=== PATIENT | female | born 1995 | race American Indian/Alaskan Native ===

== ENCOUNTER 2020-10-17 09:12 | Emergency (ER) | payer SELFPAY ==
[2020-10-17 09:17] VITALS: BP 156/99
--- NOTE | 2020-10-17 09:19 | Event Note ---
ED Screening Note Date of service: 10/17/20 Time: 09:14 ED Screening Note: 25-year-old -Turkish female presents to the emergency room for pelvic cramping x2 weeks. Patient states that she found out yesterday that she is . Patient denies any vaginal bleeding. This initial assessment/diagnostic orders/clinical plan/treatment(s) is/are subject to change based on patients health status, clinical progression and re- assessment by fellow clinical providers in the ED. Further treatment and workup at subsequent clinical providers discretion. Patient/guardian urged not to elope from the ED as their condition may be serious if not clinically assessed and managed. Initial orders include:
--- NOTE | 2020-10-17 10:29 | Ultrasound Report ---
US OB <= 14 wk fetus add gest, US OB transvaginal INDICATION / CLINICAL INFORMATION: Pelvic cramping with positive home test. COMPARISON: None available. FINDINGS: Single, viable intrauterine . heart rate 105. pole is extremely small but appears to measure approximately 2.8 mm, corresponding to a gestati onal age of 5 weeks 6 days. Tiny (6 mm) subchorionic hemorrhage. Both ovaries are unremarkable. No free fluid. IMPRESSION: 1. Single, viable very early intrauterine . Signer Name: Seth Sullivan MD Signed: 10/17/2020 10:25 AM Workstation Name: [id number]
[2020-10-17 11:14] LABS: Basophils # (Auto) 0.1 K/mm3 (0.0-0.1); Basophils % (Auto) 0.5 % (0.0-1.8); Eosinophils # (Auto) 0.1 K/mm3 (0.0-0.4); Eosinophils % (Auto) 1.1 % (0.0-4.3); Hematocrit 37.1 % (30.3-42.9); Hemoglobin 12.3 gm/dl (10.1-14.3); Lymphocytes # (Auto) 2.5 K/mm3 (1.2-5.4); Lymphocytes % (Auto) 21.4 % (13.4-35.0); Mean Corpuscular HGB Conc 33 % (30-34); Mean Corpuscular Volume 89 fl (79-97); Monocytes # (Auto) 0.9 K/mm3 (0.0-0.8); Monocytes % (Auto) 7.7 % (0.0-7.3); Platelet Count 313 K/mm3 (140-440); Red Blood Count 4.19 M/mm3 (3.65-5.03); Red Cell Distribution Width 15.4 % (13.2-15.2)
[2020-10-17 11:25] LABS: Alanine Aminotransferase 27 units/L (7-56); Albumin 3.8 g/dL (3.9-5); Blood Urea Nitrogen 6 mg/dL (7-17); Hemolysis Index 53
[2020-10-17 11:41] LABS: BUN/Creatinine Ratio 9
--- NOTE | 2020-10-17 11:52 | Emergency Department Report ---
ED Female HPI - General Chief complaint: Abdominal Pain Stated complaint: CRAMPING Source: patient Mode of arrival: Ambulatory Limitations: No Limitations - History of Present Illness Initial comments: 25-year-old -Tu[place] female presents to the emergency room for pelvic cramping x2 weeks. Patient states that she found out yesterday that she is . Patient denies any vaginal bleeding. Patient is 0 para 0. Patient reports her last menstrual period was end of July. Patient denies any vaginal discharge. Denies any urinary urgency or frequency or abdominal pain. But admits to abdominal cramping she states. Patient does admit that she smokes cigarettes drink alcohol and smokes marijuana. She reports a past medical history of colitis currently takes no medications on a daily basis no known drug allergies. Onset/Timin -: days(s) Location: suprapubic Severity scale (0 -10): 0 Quality: cramping Consistency: intermittent Improves with: none Worsens with: none Are you Now?: Yes Last Menstrual Period: 08/11/20 EDC: 05/18/21 - Related Data Previous Rx's Medication Instructions Recorded Last Taken Type Vit-Fe Fumar-FA [ 1 tab PO QDAY #90 tablet 10/17/20 Unknown Rx Vitamin] Allergies Allergy/AdvReac Type Severity Reaction Status Date / Time No Known Allergies Allergy Unverified 10/17/20 09:13 ED Review of Systems ROS: Stated complaint: CRAMPING Other details as noted in HPI Comment: All other systems reviewed and negative ED Past Medical Hx - Past Medical History Previous Medical History?: No - Surgical History Past Surgical History?: No - Social History Smoking Status: Current Every Day Smoker Substance Use Type: Alcohol - Medications Home Medications: Home Medications Medication Instructions Recorded Confirmed Last Taken Type Vit-Fe Fumar-FA [ 1 tab PO QDAY #90 tablet 10/17/20 Unknown Rx Vitamin] ED Physical Exam - General Limitations: No Limitations General appearance: alert - Head Head exam: Present: atraumatic, normocephalic - Eye Eye exam: Present: normal appearance, PERRL - ENT ENT exam: Present: mucous membranes moist - Neck Neck exam: Present: normal inspection, full ROM - Respiratory Respiratory exam: Present: normal lung sounds bilaterally. Absent: respiratory distress, chest wall tenderness, accessory muscle use - Cardiovascular Cardiovascular Exam: Present: regular rate, normal rhythm. Absent: systolic murmur, diastolic murmur, rubs, gallop - GI/Abdominal GI/Abdominal exam: Present: soft, normal bowel sounds - Extremities Exam Extremities exam: Present: normal inspection, full ROM - Back Exam Back exam: Present: normal inspection - Neurological Exam Neurological exam: Present: alert, oriented X3, normal gait - Psychiatric Psychiatric exam: Present: normal affect, normal mood - Skin Skin exam: Present: warm, dry, intact, normal color. Absent: rash ED Course Vital Signs 10/17/20 09:13 Temperature 98.3 F Pulse Rate 96 H Respiratory 18 Rate Blood Pressure 156/99 O2 Sat by Pulse 99 Oximetry ED Medical Decision Making - Lab Data Result diagrams: 10/17/20 10:13 10/17/20 10:13 - Radiology Data Radiology results: report reviewed [address] [address] Ultrasound Report Signed Patient: UNIQUE HITCHCOCK MR#: [id number] : 1995 Acct:[id number] Age/Sex: 25 / F ADM Date: 10/17/20 Loc: ED Attending Dr: Ordering Physician: KATE ESCALANTE Date of Service: 10/17/20 Procedure(s): US OB transvaginal Accession Number(s): [id number] cc: KATE ESCALANTE US OB <= 14 wk fetus add gest, US OB transvaginal INDICATION / CLINICAL INFORMATION: Pelvic cramping with positive home test. COMPARISON: None available. FINDINGS: Single, viable intrauterine . heart rate 105. pole is extremely small but appears to measure approximately 2.8 mm, corresponding to a gestational age of 5 weeks 6 days. Tiny (6 mm) subchorionic hemorrhage. Both ovaries are unremarkable. No free fluid. IMPRESSION: 1. Single, viable very early intrauterine . Signer Name: Seth Sullivan MD Signed: 10/17/2020 10:25 AM Workstation Name: [id number] Transcribed By: TM Dictated By: Seth Sullivan MD Electronically Authenticated By: Seth Sullivan MD Signed Date/Time: 10/17/20 1025 DD/ 1022 TD/TT: - Medical Decision Making 25-year-old -[place] female presents to the emergency room for pelvic cramping x2 weeks. Patient states that she found out yesterday that she is . Patient denies any vaginal bleeding. Patient is 0 para 0. Patient reports her last menstrual period was end of July. Patient denies any vaginal discharge. Denies any urinary urgency or frequency or abdominal pain. But admits to abdominal cramping she states. Patient does admit that she smokes cigarettes drink alcohol and smokes marijuana. She reports a past medical history of colitis currently takes no medications on a daily basis no known drug allergies. Ultrasound shows she is 5 weeks 6 days . Urinalysis is negative for any infection. Labs are stable. Discussed with patient to increase her water intake she can only take Tylenol for fever and pain. To consult her ANALOG DESIGN ENGINEER with information provided in discharge summary. Discussed with patient to discontinue smoking cigarettes and marijuana and drinking alcohol during her as this can cause low rate increased miscarriage and abnormalities. Critical care attestation.: If time is entered above; I have spent that time in minutes in the direct care of this critically ill patient, excluding procedure time. ED Disposition Clinical Impression: Pelvic cramping Qualifiers: Weeks of gestation: less than 8 weeks Qualified Code(s): Z3A.01 - Less than 8 weeks gestation of Disposition: DC-01 TO HOME OR SELFCARE Is pt being admited?: No Does the pt Need Aspirin: No Condition: Stable Instructions: Abdominal Pain (ED) Additional Instructions: Ultrasound shows that she are 5 weeks and 6 days . Your urine is negative for any infection. I recommend to take your vitamins daily increase your water intake by 3 to 4 L daily. Follow-up with an ANALOG DESIGN ENGINEER I have listed their information below for your convenience. Understand she can only take Tylenol as needed for pain and fever. Consult a ANALOG DESIGN ENGINEER before taking any [id number] medications. Prescriptions: Vit-Fe Fumar-FA [ Vitamin] 1 tab PO QDAY #90 tablet Referrals: PRIMARY CAREMD [Primary Care Provider] - 3-5 Days [facility] [Provider Group] - 3-5 Days [facility] [Provider Group] - 3-5 Days [facility] [Provider Group] - 3-5 Days [facility] [Provider Group] - 3-5 Days Forms: Work/School Release Form(ED)
[2020-10-17 11:55] LABS: Bilirubin,Urine NEG (Negative); Blood,Urine NEG (Negative); Color,Urine Yellow (Yellow); Mucus,Urine FEW /HPF; Urobilinogen,Urine < 2.0 mg/dL (<2.0)
== END 2020-10-17 12:10 | disposition home or self-care (01) ==
LOC: ED 09:12
DX: O26.891 Other specified pregnancy related conditions, first trimester (principal); O99.331 Smoking (tobacco) complicating pregnancy, first trimester; R10.2 Pelvic and perineal pain; Z3A.08 8 weeks gestation of pregnancy; Z79.899 Other long term (current) drug therapy
CPT/HCPCS: 36415; 76802; 76817; 80053; 81001; 84702; 85025

== ENCOUNTER 2021-06-15 20:14 | Inpatient (IN) | payer MEDICAID ==
[2021-06-15] MEDS ORDERED: miSOPROStol 200 MCG TAB PR PRN (20:44)
[2021-06-15] MEDS ORDERED: fentaNYL 100 MCG/2 ML INJ IV PRN (20:44)
[2021-06-15] MEDS ORDERED: MINERAL OIL 30 ML ORAL LIQD PO PRN (20:44)
[2021-06-15] MEDS ORDERED: TERBUTALINE 1 MG/1 ML INJ SUB-Q PRN (20:44)
[2021-06-15] MEDS ORDERED: DINOPROSTONE 10 MG VAG SUPP VG ONE (20:44)
[2021-06-15] MEDS ORDERED: LOPERAMIDE 2 MG CAP PO PRN (20:44)
[2021-06-15] MEDS ORDERED: OXYTOCIN 10 UNIT/1 ML INJ IM PRN (20:44)
[2021-06-15] MEDS ORDERED: ACETAMINOPHEN 325 MG TAB PO PRN (20:44)
[2021-06-15] MEDS ORDERED: LIDOCAINE (2%) 20 MG/1 ML VIAL 20 ML MDV INFILTRATI ONE (20:44)
[2021-06-15] MEDS ORDERED: ONDANSETRON 4 MG/2 ML INJ IV PRN (20:44)
[2021-06-15] MEDS ORDERED: NalbUPHINE 10 MG/1 ML INJ IV PRN (20:44)
[2021-06-15] MEDS ORDERED: METHYLERGONOVINE MALEATE 0.2 MG/ML VIAL IM PRN (20:44)
[2021-06-15] MEDS ORDERED: CARBOPROST TROMETHAMINE 250 MCG/1 ML INJ IM PRN (20:44)
[2021-06-15] MEDS ORDERED: ePHEDrine SULFATE 50 MG/1 ML INJ IV PRN (20:44)
[2021-06-15] MEDS ORDERED: LACTATED RINGERS 1,000 ML IV SCH (20:45)
[2021-06-15] MEDS ORDERED: OXYTOCIN DRIP 30 UNITS/500 ML BAG IV SCH (21:00)
--- NOTE | 2021-06-15 21:29 | History and Physical Report ---
History of Present Illness Date of examination: 06/15/21 Date of admission: 06/15/21 20:32 Chief complaint: [facility] History of present illness: EDC Confirmation: 06/09/2021 Past History : 1 Term Births: 0 Premature Births: 0 Living Children: 0 Para: 0 Mult. Births: 0 Prev : 0 Aborta: 0 Elect. Ab: 0 Spont. Ab: 0 Ectopics: 0 Past Medical History: Reviewed history and no changes required: Negative Past Medical History Past Surgical History: Reviewed history and no changes required: negative Past Medical History Anesthesia Complications: negative Anemia: negative Autoimmune Disorder: negative Bleeding Disorder: negative Blood Transfusions: negative Breast Disease: negative Diabetes: negative Heart Disease: negative Hypertension: negative Hepatitis/Liver Disease: negative Kidney Disease/UTI: negative Neurologic/Epilepsy/Migraines: negative Phlebitis/Varicosities: negative Psychiatric: negative Pulmonary Disease/Asthma: negative Thyroid Disease: negative Hospitalizations: negative Surgery (Non-wallboard worker): negative Abnormal PAP: negative MARY Exposure: negative Infertility: negative Uterine Anomaly: negative Uterine Surgery (not C/S): negative Other Gynecologic Problems: negative Family Hx: DM: PGM CA: Breast Paternal Aunt, Mother ovarian Infection History Hx of STD: none HIV Risk Eval: low risk Hepatitis B Risk Eval: low risk Personal hx. of genital herpes: no Partner hx. of genital herpes: no Rash, Viral, or Febrile illness since last LMP? no Varicella/Chicken Pox Status: No TB Risk: no Genetic History Congenital Heart Defect: Mom: no Dad: no Kyra Disease: Mom: no Dad: no Thalassemia Mom: no Dad: no Neural Tube Defect Mom: no Dad: no Down's Syndrome Mom: no Dad: no Jay-Sachs Mom: no Dad: no Sickle Cell Disease/Trait Mom: no Dad: no Hemophilia Mom: no Dad: no Muscular Dystrophy Mom: no Dad: no Cystic Fibrosis Mom: no Dad: no Mahsa Chorea Mom: no Dad: no Mental Retardation Mom: no Dad: no Fragile X Mom: no Dad: no Other Genetic/Chromosomal Disorder Mom: no Dad: no Child w/other defect Mom: no Dad: no Enviromental Exposures Xray Exposure: no Medication, drug, or alcohol use since LMP: no Chemical/Other Exposure: no Exposure to Cat Liter: no Hx of Parvovirus (Fifth Disease): no Occupational Exposure to Children: none Active Medications (reviewed today): None Current Allergies (reviewed today): No known allergies Past History Past Medical History: other (see HPI) Past Surgical History: other (see HPI) CLASSIFIER TENDER History: other (see HPI) Family/Genetic History: other (see HPI) Social history: lives with family - Obstetrical History Expected Date of Delivery: 06/09/21 Actual Gestation: 41 Week(s) 1 Day(s) : 1 Para: 0 Hx # Term Pregnancies: 0 Number of Pregnancies: 0 Spontaneous Abortions: 0 Induced : 0 Number of Living Children: 0 Medications and Allergies Allergies Allergy/AdvReac Type Severity Reaction Status Date / Time No Known Allergies Allergy Verified 06/15/21 20:52 Home Medications Medication Instructions Recorded Confirmed Last Taken Type Vit-Fe Fumar-FA [ 1 tab PO QDAY #90 tablet 10/17/20 06/14/21 Rx Vitamin] 1 Aspirin 81 tab PO DAILY 06/16/21 06/16/21 06/14/21 History Active Meds: Active Medications Acetaminophen (Acetaminophen 325 Mg Tab) 650 mg PO Q4H PRN PRN Reason: Pain, Mild (1-3) Carboprost Tromethamine (Carboprost Tromethamine 250 Mcg/1 Ml Inj) 250 mcg IM ONCE PRN PRN Reason: Uterine Bleeding Ephedrine Sulfate (Ephedrine Sulfate 50 Mg/1 Ml Inj) 10 mg IV Q2M PRN PRN Reason: Hypotension Fentanyl (Fentanyl 100 Mcg/2 Ml Inj) 100 mcg IV Q2H PRN PRN Reason: Pain,Severe (7-10) LABOR PAIN Oxytocin/Sodium Chloride (Pitocin/Ns 30 Unit/500ml) 30 units in 500 mls @ 2 mls/hr IV TITR MILLY; Protocol Lactated Ringer's (Lactated Ringers) 1,000 mls @ 125 mls/hr IV DIRECT MILLY Oxytocin/Sodium Chloride (Pitocin/Ns 30 Unit/500ml) 30 units in 500 mls @ 40 mls/hr IV TITR MILLY; Protocol Loperamide HCl (Loperamide 2 Mg Cap) 2 mg PO ONCE PRN PRN Reason: give with Hemabate Methylergonovine Maleate (Methylergonovine Maleate 0.2 Mg/Ml Vial) 0.2 mg IM ONCE PRN PRN Reason: Uterine Bleeding Mineral Oil (Mineral Oil 30 Ml Oral Liqd) 30 ml PO QHS PRN PRN Reason: Constipation Misoprostol (Misoprostol 200 Mcg Tab) 800 mcg MT ONCE PRN PRN Reason: Uterine Bleeding Nalbuphine HCl (Nalbuphine 10 Mg/1 Ml Inj) 10 mg IV Q2H PRN PRN Reason: Pain, Moderate (4-6) Ondansetron HCl (Ondansetron 4 Mg/2 Ml Inj) 4 mg IV Q8H PRN PRN Reason: Nausea And Vomiting Oxytocin (Oxytocin 10 Unit/1 Ml Inj) 10 unit IM ONCE PRN PRN Reason: Uterine Bleeding Terbutaline Sulfate (Terbutaline 1 Mg/1 Ml Inj) 0.25 mg SUB-Q ONCE PRN PRN Reason: Hyperstimulation/Hypertonicity Review of Systems All systems: negative - Vital Signs Vital signs: Vital Signs Pulse BP 101 H 119/56 06/15/21 20:57 06/15/21 20:57 Temp Pulse Resp BP Pulse Ox 98.9 F 88 16 119/56 95 06/15/21 21:02 06/15/21 21:18 06/15/21 21:02 06/15/21 21:02 06/15/21 21:18 - Physical Exam Cardiovascular: Regular rate Lungs: Positive: Normal air movement Abdomen: Positive: normal appearance, soft - Obstetrical FHR: category 1 Results Result Diagrams: 06/15/21 21:41 All other labs normal. Assessment and Plan 25y/o @ 40+5 weeks admitted for IOL. complicated by morbid obes ity and inconsistent care. GBS +. EFW by u/s in office 06/14#0oz, vertex, YOVANNY 20. Plan for cervical ripening tonight with reassessment in AM. Admission orders in EMR - Patient Problems (1) 40 weeks gestation of Current Visit: Yes Status: Acute (2) BMI 45.0-49.9, adult Current Visit: Yes Status: Acute (3) GBS (group B Streptococcus carrier), +RV culture, currently Current Visit: Yes Status: Acute Plan to address problem: Ampicillin q4hrs when in active labor
[2021-06-15 22:32] LABS: Hematocrit 28.5 % (30.3-42.9); Hemoglobin 9.3 gm/dl (10.1-14.3); Mean Corpuscular HGB Conc 33 % (30-34); Mean Corpuscular Volume 79 fl (79-97); Platelet Count 360 K/mm3 (140-440); Red Cell Distribution Width 17.2 % (13.2-15.2)
--- NOTE | 2021-06-16 08:52 | Progress Note ---
Assessment and Plan A: 25 y.o. @ 41 wks, IOL for postdates. Cervical exam 0.5/50/-3. P: Cervidil removed. Will allow for breakfast and shower. Initiate Pitocin @ 0930 am. Subjective - Subjective Date of service: 06/16/21 Principal diagnosis: IUP @ 41 weeks, IOL d/t postdates and AMFM recommendation Patient reports: movement normal, contractions Objective - Vital Signs Vital Signs: Vital Signs - 12hr 06/15/21 06/15/21 06/15/21 20:57 20:58 21:02 Temperature 98.9 F Pulse Rate 101 H 102 H 102 H Respiratory 16 Rate Blood Pressure 119/56 Blood Pressure 119/56 [Right] O2 Sat by Pulse 99 99 Oximetry O2 Sat by Pulse Oximetry [ Bilateral Throughout] 06/15/21 06/15/21 06/15/21 21:03 21:08 21:13 Temperature Pulse Rate 94 H 101 H 89 Respiratory Rate Blood Pressure Blood Pressure [Right] O2 Sat by Pulse 99 98 99 Oximetry O2 Sat by Pulse Oximetry [ Bilateral Throughout] 06/15/21 06/15/21 06/15/21 21:18 21:23 21:28 Temperature Pulse Rate 88 87 97 H Respiratory Rate Blood Pressure Blood Pressure [Right] O2 Sat by Pulse 95 97 95 Oximetry O2 Sat by Pulse Oximetry [ Bilateral Throughout] 06/15/21 06/15/21 06/15/21 21:33 21:38 21:43 Temperature Pulse Rate 95 H 92 H 89 Respiratory Rate Blood Pressure Blood Pressure [Right] O2 Sat by Pulse 97 98 97 Oximetry O2 Sat by Pulse Oximetry [ Bilateral Throughout] 06/15/21 06/15/21 06/15/21 21:48 21:49 21:53 Temperature Pulse Rate 88 95 H Respiratory Rate Blood Pressure Blood Pressure [Right] O2 Sat by Pulse 97 98 Oximetry O2 Sat by Pulse 99 Oximetry [ Bilateral Throughout] 06/15/21 06/15/21 06/15/21 21:58 22:03 22:08 Temperature Pulse Rate 86 95 H 90 Respiratory Rate Blood Pressure Blood Pressure [Right] O2 Sat by Pulse 99 97 98 Oximetry O2 Sat by Pulse Oximetry [ Bilateral Throughout] 06/15/21 06/15/21 06/15/21 22:13 22:18 22:23 Temperature Pulse Rate 86 85 92 H Respiratory Rate Blood Pressure Blood Pressure [Right] O2 Sat by Pulse 98 97 99 Oximetry O2 Sat by Pulse Oximetry [ Bilateral Throughout] 06/15/21 06/15/21 06/15/21 22:28 22:29 22:33 Temperature Pulse Rate 87 86 97 H Respiratory Rate Blood Pressure 123/61 Blood Pressure [Right] O2 Sat by Pulse 98 98 Oximetry O2 Sat by Pulse Oximetry [ Bilateral Throughout] 06/15/21 06/15/21 06/15/21 22:38 22:43 22:48 Temperature Pulse Rate 99 H 100 H 93 H Respiratory Rate Blood Pressure Blood Pressure [Right] O2 Sat by Pulse 97 99 99 Oximetry O2 Sat by Pulse Oximetry [ Bilateral Throughout] 06/15/21 06/15/21 06/15/21 22:54 22:59 23:04 Temperature Pulse Rate 86 90 85 Respiratory Rate Blood Pressure Blood Pressure [Right] O2 Sat by Pulse 99 98 98 Oximetry O2 Sat by Pulse Oximetry [ Bilateral Throughout] 06/15/21 06/15/21 06/15/21 23:09 23:14 23:19 Temperature Pulse Rate 89 85 88 Respiratory Rate Blood Pressure Blood Pressure [Right] O2 Sat by Pulse 98 98 98 Oximetry O2 Sat by Pulse Oximetry [ Bilateral Throughout] 06/15/21 06/15/21 06/15/21 23:24 23:28 23:29 Temperature Pulse Rate 79 93 H 88 Respiratory Rate Blood Pressure 137/63 Blood Pressure [Right] O2 Sat by Pulse 99 99 Oximetry O2 Sat by Pulse Oximetry [ Bilateral Throughout] 06/15/21 06/15/21 06/15/21 23:34 23:39 23:44 Temperature Pulse Rate 92 H 87 89 Respiratory Rate Blood Pressure Blood Pressure [Right] O2 Sat by Pulse 99 98 97 Oximetry O2 Sat by Pulse Oximetry [ Bilateral Throughout] 06/15/21 06/15/21 06/15/21 23:49 23:54 23:59 Temperature Pulse Rate 89 86 92 H Respiratory Rate Blood Pressure Blood Pressure [Right] O2 Sat by Pulse 97 97 96 Oximetry O2 Sat by Pulse Oximetry [ Bilateral Throughout] 06/16/21 06/16/21 06/16/21 00:04 00:09 00:13 Temperature Pulse Rate 88 90 80 Respiratory Rate Blood Pressure Blood Pressure [Right] O2 Sat by Pulse 96 97 94 Oximetry O2 Sat by Pulse Oximetry [ Bilateral Throughout] 06/16/21 06/16/21 06/16/21 00:14 00:19 00:21 Temperature Pulse Rate 82 90 87 Respiratory Rate Blood Pressure Blood Pressure [Right] O2 Sat by Pulse 96 95 93 Oximetry O2 Sat by Pulse Oximetry [ Bilateral Throughout] 06/16/21 06/16/21 06/16/21 00:24 00:27 00:28 Temperature Pulse Rate 84 101 H 86 Respiratory Rate Blood Pressure 125/59 Blood Pressure [Right] O2 Sat by Pulse 96 94 Oximetry O2 Sat by Pulse Oximetry [ Bilateral Throughout] 06/16/21 06/16/21 06/16/21 00:29 00:34 00:37 Temperature Pulse Rate 85 85 83 Respiratory Rate Blood Pressure Blood Pressure [Right] O2 Sat by Pulse 96 96 94 Oximetry O2 Sat by Pulse Oximetry [ Bilateral Throughout] 06/16/21 06/16/21 06/16/21 00:39 00:44 00:46 Temperature Pulse Rate 88 91 H 87 Respiratory Rate Blood Pressure Blood Pressure [Right] O2 Sat by Pulse 96 96 94 Oximetry O2 Sat by Pulse Oximetry [ Bilateral Throughout] 06/16/21 06/16/21 06/16/21 00:49 00:52 00:54 Temperature Pulse Rate 83 85 87 Respiratory Rate Blood Pressure Blood Pressure [Right] O2 Sat by Pulse 96 94 96 Oximetry O2 Sat by Pulse Oximetry [ Bilateral Throughout] 06/16/21 06/16/21 06/16/21 00:57 00:59 01:03 Temperature Pulse Rate 85 87 86 Respiratory Rate Blood Pressure Blood Pressure [Right] O2 Sat by Pulse 92 94 94 Oximetry O2 Sat by Pulse Oximetry [ Bilateral Throughout] 06/16/21 06/16/21 06/16/21 01:04 01:08 01:09 Temperature Pulse Rate 87 85 95 H Respiratory Rate Blood Pressure Blood Pressure [Right] O2 Sat by Pulse 96 94 97 Oximetry O2 Sat by Pulse Oximetry [ Bilateral Throughout] 06/16/21 06/16/21 06/16/21 01:14 01:19 01:24 Temperature Pulse Rate 98 H 96 H 103 H Respiratory Rate Blood Pressure Blood Pressure [Right] O2 Sat by Pulse 98 98 98 Oximetry O2 Sat by Pulse Oximetry [ Bilateral Throughout] 06/16/21 06/16/21 06/16/21 01:28 01:29 01:39 Temperature Pulse Rate 92 H 88 95 H Respiratory Rate Blood Pressure 119/55 Blood Pressure [Right] O2 Sat by Pulse 98 99 Oximetry O2 Sat by Pulse Oximetry [ Bilateral Throughout] 06/16/21 06/16/21 06/16/21 01:44 01:49 01:54 Temperature Pulse Rate 93 H 89 87 Respiratory Rate Blood Pressure Blood Pressure [Right] O2 Sat by Pulse 98 98 97 Oximetry O2 Sat by Pulse Oximetry [ Bilateral Throughout] 06/16/21 06/16/21 06/16/21 01:59 02:04 02:09 Temperature Pulse Rate 86 82 77 Respiratory Rate Blood Pressure Blood Pressure [Right] O2 Sat by Pulse 98 98 97 Oximetry O2 Sat by Pulse Oximetry [ Bilateral Throughout] 06/16/21 06/16/21 06/16/21 02:14 02:19 02:24 Temperature Pulse Rate 87 79 80 Respiratory Rate Blood Pressure Blood Pressure [Right] O2 Sat by Pulse 98 96 97 Oximetry O2 Sat by Pulse Oximetry [ Bilateral Throughout] 06/16/21 06/16/21 06/16/21 02:28 02:29 02:34 Temperature Pulse Rate 82 83 78 Respiratory Rate Blood Pressure 113/56 Blood Pressure [Right] O2 Sat by Pulse 97 97 Oximetry O2 Sat by Pulse Oximetry [ Bilateral Throughout] 06/16/21 06/16/21 06/16/21 02:39 02:44 02:49 Temperature Pulse Rate 78 74 73 Respiratory Rate Blood Pressure Blood Pressure [Right] O2 Sat by Pulse 97 98 98 Oximetry O2 Sat by Pulse Oximetry [ Bilateral Throughout] 06/16/21 06/16/21 06/16/21 02:50 02:54 02:59 Temperature Pulse Rate 68 74 73 Respiratory Rate Blood Pressure Blood Pressure [Right] O2 Sat by Pulse 92 98 97 Oximetry O2 Sat by Pulse Oximetry [ Bilateral Throughout] 06/16/21 06/16/21 06/16/21 03:04 03:09 03:14 Temperature Pulse Rate 79 73 74 Respiratory Rate Blood Pressure Blood Pressure [Right] O2 Sat by Pulse 97 96 97 Oximetry O2 Sat by Pulse Oximetry [ Bilateral Throughout] 06/16/21 06/16/21 06/16/21 03:15 03:19 03:24 Temperature Pulse Rate 87 71 74 Respiratory Rate Blood Pressure Blood Pressure [Right] O2 Sat by Pulse 94 98 98 Oximetry O2 Sat by Pulse Oximetry [ Bilateral Throughout] 06/16/21 06/16/21 06/16/21 03:28 03:29 03:34 Temperature Pulse Rate 82 81 79 Respiratory Rate Blood Pressure 110/55 Blood Pressure [Right] O2 Sat by Pulse 98 98 Oximetry O2 Sat by Pulse Oximetry [ Bilateral Throughout] 06/16/21 06/16/21 06/16/21 03:39 03:40 03:44 Temperature Pulse Rate 69 72 68 Respiratory Rate Blood Pressure Blood Pressure [Right] O2 Sat by Pulse 96 94 97 Oximetry O2 Sat by Pulse Oximetry [ Bilateral Throughout] 06/16/21 06/16/21 06/16/21 03:48 03:49 03:54 Temperature Pulse Rate 64 71 78 Respiratory Rate Blood Pressure Blood Pressure [Right] O2 Sat by Pulse 92 93 95 Oximetry O2 Sat by Pulse Oximetry [ Bilateral Throughout] 06/16/21 06/16/21 06/16/21 03:59 04:00 04:04 Temperature Pulse Rate 75 71 84 Respiratory Rate Blood Pressure Blood Pressure [Right] O2 Sat by Pulse 98 94 99 Oximetry O2 Sat by Pulse Oximetry [ Bilateral Throughout] 06/16/21 06/16/21 06/16/21 04:09 04:18 04:19 Temperature Pulse Rate 81 84 80 Respiratory Rate Blood Pressure 142/68 Blood Pressure [Right] O2 Sat by Pulse 97 99 Oximetry O2 Sat by Pulse Oximetry [ Bilateral Throughout] 06/16/21 06/16/21 06/16/21 04:23 04:28 04:33 Temperature Pulse Rate 99 H 91 H 76 Respiratory Rate Blood Pressure 135/62 Blood Pressure [Right] O2 Sat by Pulse 97 99 98 Oximetry O2 Sat by Pulse Oximetry [ Bilateral Throughout] 06/16/21 06/16/21 06/16/21 04:38 04:43 04:46 Temperature Pulse Rate 76 75 71 Respiratory Rate Blood Pressure Blood Pressure [Right] O2 Sat by Pulse 98 97 88 Oximetry O2 Sat by Pulse Oximetry [ Bilateral Throughout] 06/16/21 06/16/21 06/16/21 04:48 04:52 04:53 Temperature Pulse Rate 84 74 77 Respiratory Rate Blood Pressure Blood Pressure [Right] O2 Sat by Pulse 97 91 95 Oximetry O2 Sat by Pulse Oximetry [ Bilateral Throughout] 06/16/21 06/16/21 06/16/21 04:58 05:03 05:06 Temperature Pulse Rate 85 74 74 Respiratory Rate Blood Pressure Blood Pressure [Right] O2 Sat by Pulse 97 98 94 Oximetry O2 Sat by Pulse Oximetry [ Bilateral Throughout] 06/16/21 06/16/21 06/16/21 05:08 05:13 05:18 Temperature Pulse Rate 75 103 H 78 Respiratory Rate Blood Pressure Blood Pressure [Right] O2 Sat by Pulse 91 99 96 Oximetry O2 Sat by Pulse Oximetry [ Bilateral Throughout] 06/16/21 06/16/21 06/16/21 05:23 05:28 05:29 Temperature Pulse Rate 85 84 83 Respiratory Rate Blood Pressure 138/84 Blood Pressure [Right] O2 Sat by Pulse 98 98 Oximetry O2 Sat by Pulse Oximetry [ Bilateral Throughout] 06/16/21 06/16/21 06/16/21 05:33 05:36 05:38 Temperature 98.2 F Pulse Rate 82 82 84 Respiratory Rate Blood Pressure Blood Pressure 134/84 [Right] O2 Sat by Pulse 96 98 Oximetry O2 Sat by Pulse Oximetry [ Bilateral Throughout] 06/16/21 06/16/21 06/16/21 05:43 05:48 05:50 Temperature Pulse Rate 76 87 76 Respiratory Rate Blood Pressure Blood Pressure [Right] O2 Sat by Pulse 96 95 94 Oximetry O2 Sat by Pulse Oximetry [ Bilateral Throughout] 06/16/21 06/16/21 06/16/21 05:53 06:16 06:21 Temperature Pulse Rate 90 87 88 Respiratory Rate Blood Pressure Blood Pressure [Right] O2 Sat by Pulse 98 97 95 Oximetry O2 Sat by Pulse Oximetry [ Bilateral Throughout] 06/16/21 06/16/21 06/16/21 06:26 06:28 06:31 Temperature Pulse Rate 84 87 80 Respiratory Rate Blood Pressure 136/65 Blood Pressure [Right] O2 Sat by Pulse 98 96 Oximetry O2 Sat by Pulse Oximetry [ Bilateral Throughout] 06/16/21 06/16/21 06/16/21 06:36 06:41 06:46 Temperature Pulse Rate 86 94 H 91 H Respiratory Rate Blood Pressure Blood Pressure [Right] O2 Sat by Pulse 96 100 97 Oximetry O2 Sat by Pulse Oximetry [ Bilateral Throughout] 06/16/21 06/16/21 06/16/21 06:51 06:56 07:01 Temperature Pulse Rate 84 81 77 Respiratory Rate Blood Pressure Blood Pressure [Right] O2 Sat by Pulse 98 98 98 Oximetry O2 Sat by Pulse Oximetry [ Bilateral Throughout] 06/16/21 06/16/21 06/16/21 07:06 07:11 07:16 Temperature Pulse Rate 76 77 74 Respiratory Rate Blood Pressure Blood Pressure [Right] O2 Sat by Pulse 97 94 98 Oximetry O2 Sat by Pulse Oximetry [ Bilateral Throughout] 06/16/21 06/16/21 06/16/21 07:21 07:26 07:29 Temperature Pulse Rate 80 79 81 Respiratory Rate Blood Pressure 141/83 Blood Pressure [Right] O2 Sat by Pulse 97 97 Oximetry O2 Sat by Pulse Oximetry [ Bilateral Throughout] 06/16/21 06/16/21 06/16/21 07:31 07:36 07:41 Temperature Pulse Rate 76 84 79 Respiratory Rate Blood Pressure Blood Pressure [Right] O2 Sat by Pulse 97 97 97 Oximetry O2 Sat by Pulse Oximetry [ Bilateral Throughout] 06/16/21 06/16/21 06/16/21 07:46 07:51 07:52 Temperature Pulse Rate 87 79 78 Respiratory Rate Blood Pressure Blood Pressure [Right] O2 Sat by Pulse 96 97 93 Oximetry O2 Sat by Pulse Oximetry [ Bilateral Throughout] 06/16/21 06/16/21 06/16/21 07:56 08:01 08:12 Temperature Pulse Rate 82 78 88 Respiratory Rate Blood Pressure Blood Pressure [Right] O2 Sat by Pulse 97 93 100 Oximetry O2 Sat by Pulse Oximetry [ Bilateral Throughout] 06/16/21 06/16/21 06/16/21 08:17 08:22 08:27 Temperature Pulse Rate 85 87 78 Respiratory Rate Blood Pressure Blood Pressure [Right] O2 Sat by Pulse 97 97 96 Oximetry O2 Sat by Pulse Oximetry [ Bilateral Throughout] 06/16/21 06/16/21 06/16/21 08:30 08:32 08:37 Temperature Pulse Rate 75 75 80 Respiratory Rate Blood Pressure 123/74 Blood Pressure [Right] O2 Sat by Pulse 96 98 Oximetry O2 Sat by Pulse Oximetry [ Bilateral Throughout] 06/16/21 06/16/21 06/16/21 08:38 08:39 08:42 Temperature 98.1 F Pulse Rate 88 88 Respiratory 16 Rate Blood Pressure Blood Pressure 123/74 [Right] O2 Sat by Pulse 100 100 Oximetry O2 Sat by Pulse 99 Oximetry [ Bilateral Throughout] - Exam Narrative Exam: Discussed with patient AM care and starting Pitocin @ 0930am. Pt verbalized understanding. Breasts: deferred Cardiovascular: Regular rate Lungs: Normal air movement Abdomen: Present: normal appearance, soft Vulva: both: normal Uterus: Present: normal FHR: category 1 Uterine Contraction Monitor Mode: External Cervical Dilatation: 0.5 Cervical Effacement Percentage: 50 station: -3 Uterine Contraction Pattern: Irregular Uterine Tone Measurement Phase: Resting Uterine Contraction Intensity: Moderate Extremities: normal - Labs Labs: Abnormal Labs 06/15/21 21:41 WBC 12.9 H RBC 3.60 L Hgb 9.3 L Hct 28.5 L MCH 26 L RDW 17.2 H Laboratory Results - last 24 hr 06/15/21 06/15/21 06/15/21 21:41 21:41 21:41 WBC 12.9 H RBC 3.60 L Hgb 9.3 L Hct 28.5 L MCV 79 MCH 26 L MCHC 33 RDW 17.2 H Plt Count 360 Syphilis IgG Antibody Nonreactive Blood Type A POSITIVE Antibody Screen Negative
[2021-06-16] MEDS ORDERED: AMPICILLIN/NS 2 GM/100 ML 2 GM/100 ML BAG IV SCH (09:30)
[2021-06-16] MEDS: OXYTOCIN DRIP 30 UNITS/500 ML BAG IV SCH (10:45)
[2021-06-16] MEDS: AMPICILLIN/NS 1 GM/50 ML 1 GM/50 ML BAG IV SCH ×3 (15:15→23:46)
--- NOTE | 2021-06-16 15:46 | Event Note ---
Date: 06/16/21 (Pt feeling contractions) Patient was checked by RN around noon before a dose of pain medication. States that she was the same dilation as this AM. Discussed plan of care with patient and RN. Will turn off Pitocin at 5pm, let patient eat dinner and then insert another cervidil at 630 pm. Patient and RN verbalized understanding. Patient agrees to plan of care at this time.
[2021-06-16] MEDS ORDERED: DINOPROSTONE 10 MG VAG SUPP VG ONE ×2 (17:04→18:30)
--- NOTE | 2021-06-16 18:50 | Event Note ---
Date: 06/16/21 (Cervidil placed. ) Cervidil placed without difficulty. Cervical exam FT/70/-3.
[2021-06-16] MEDS ORDERED: diphenhydrAMINE 25 MG CAP PO PRN (21:00)
[2021-06-17] MEDS: AMPICILLIN/NS 1 GM/50 ML 1 GM/50 ML BAG IV SCH ×2 (04:16→08:13)
[2021-06-17] MEDS: OXYTOCIN DRIP 30 UNITS/500 ML BAG IV SCH ×2 (08:00→12:00)
--- NOTE | 2021-06-17 08:12 | Progress Note ---
Assessment and Plan Patient very uncomfortable with ctx pain. Discussed options for pain management. D/t cervical change and BBOW will start increasing pitocin. encouraged pt to get epidural over repeated doses of IV sedation d/t decreased effectiveness and sedation of . Pt report EFW by [facility] 7-8 lbs. All questions addressed. - Patient Problems (1) 40 weeks gestation of Current Visit: Yes Status: Acute (2) BMI 45.0-49.9, adult Current Visit: Yes Status: Acute (3) GBS (group B Streptococcus carrier), +RV culture, currently Current Visit: Yes Status: Acute Plan to address problem: Ampicillin q4hrs until delivery Subjective - Subjective Date of service: 06/17/21 Principal diagnosis: IUP @ 41w1d, IOL d/t postdates and [facility] recommendation Interval history: EDC Confirmation: 06/09/2021 Past History : 1 Term Births: 0 Premature Births: 0 Living Children: 0 Para: 0 Mult. Births: 0 Prev : 0 Aborta: 0 Elect. Ab: 0 Spont. Ab: 0 Ectopics: 0 Past Medical History: Reviewed history and no changes required: Negative Past Medical History Past Surgical History: Reviewed history and no changes required: negative Past Medical History Anesthesia Complications: negative Anemia: negative Autoimmune Disorder: negative Bleeding Disorder: negative Blood Transfusions: negative Breast Disease: negative Diabetes: negative Heart Disease: negative Hypertension: negative Hepatitis/Liver Disease: negative Kidney Disease/UTI: negative Neurologic/Epilepsy/Migraines: negative Phlebitis/Varicosities: negative Psychiatric: negative Pulmonary Disease/Asthma: negative Thyroid Disease: negative Hospitalizations: negative 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 of genital herpes: no Partner hx. of genital herpes: no Rash, Viral, or Febrile illness since last LMP? no Varicella/Chicken Pox Status: No TB Risk: no Genetic History Congenital Heart Defect: Mom: no Dad: no Kyra Disease: Mom: no Dad: no Thalassemia Mom: no Dad: no Neural Tube Defect Mom: no Dad: no Down's Syndrome Mom: no Dad: no Jay-Sachs Mom: no Dad: no Sickle Cell Disease/Trait Mom: no Dad: no Hemophilia Mom: no Dad: no Muscular Dystrophy Mom: no Dad: no Cystic Fibrosis Mom: no Dad: no Mahsa Chorea Mom: no Dad: no Mental Retardation Mom: no Dad: no Fragile X Mom: no Dad: no Other Genetic/Chromosomal Disorder Mom: no Dad: no Child w/other defect Mom: no Dad: no Enviromental Exposures Xray Exposure: no Medication, drug, or alcohol use since LMP: no Chemical/Other Exposure: no Exposure to Cat Liter: no Hx of Parvovirus (Fifth Disease): no Occupational Exposure to Children: none Active Medications (reviewed today): None Current Allergies (reviewed today): No known allergies Patient reports: movement normal, contractions, no loss of fluid, no vaginal bleeding Objective - Vital Signs Vital Signs: Vital Signs - 12hr 06/16/21 06/16/21 06/16/21 20:16 20:21 20:26 Temperature Pulse Rate 75 70 71 Respiratory Rate Blood Pressure Blood Pressure [Right] O2 Sat by Pulse 99 99 99 Oximetry O2 Sat by Pulse Oximetry [ Bilateral Throughout] 06/16/21 06/16/21 06/16/21 20:31 20:33 20:36 Temperature Pulse Rate 67 71 76 Respiratory Rate Blood Pressure 128/64 Blood Pressure [Right] O2 Sat by Pulse 98 98 Oximetry O2 Sat by Pulse Oximetry [ Bilateral Throughout] 06/16/21 06/16/21 06/16/21 20:40 20:45 20:51 Temperature Pulse Rate 74 76 72 Respiratory Rate Blood Pressure Blood Pressure [Right] O2 Sat by Pulse 98 98 98 Oximetry O2 Sat by Pulse 75 L Oximetry [ Bilateral Throughout] 06/16/21 06/16/21 06/16/21 20:56 21:00 21:03 Temperature Pulse Rate 79 91 H 73 Respiratory Rate Blood Pressure 134/65 Blood Pressure [Right] O2 Sat by Pulse 98 99 94 Oximetry O2 Sat by Pulse Oximetry [ Bilateral Throughout] 06/16/21 06/16/21 06/16/21 21:05 21:11 21:15 Temperature Pulse Rate 73 78 84 Respiratory Rate Blood Pressure Blood Pressure [Right] O2 Sat by Pulse 99 98 99 Oximetry O2 Sat by Pulse Oximetry [ Bilateral Throughout] 06/16/21 06/16/2121 21:20 21:25 21:30 Temperature Pulse Rate 71 78 76 Respiratory Rate Blood Pressure Blood Pressure [Right] O2 Sat by Pulse 98 100 99 Oximetry O2 Sat by Pulse Oximetry [ Bilateral Throughout] 06/16/21 06/16/21 06/16/21 21:33 21:35 21:40 Temperature Pulse Rate 69 87 70 Respiratory Rate Blood Pressure 127/67 Blood Pressure [Right] O2 Sat by Pulse 94 99 98 Oximetry O2 Sat by Pulse Oximetry [ Bilateral Throughout] 06/16/21 06/16/21 06/16/21 21:45 21:55 22:00 Temperature Pulse Rate 75 78 74 Respiratory Rate Blood Pressure Blood Pressure [Right] O2 Sat by Pulse 98 98 99 Oximetry O2 Sat by Pulse Oximetry [ Bilateral Throughout] 06/16/21 06/16/21 06/16/21 22:03 22:05 22:10 Temperature Pulse Rate 71 71 71 Respiratory Rate Blood Pressure 130/61 Blood Pressure [Right] O2 Sat by Pulse 99 98 Oximetry O2 Sat by Pulse Oximetry [ Bilateral Throughout] 06/16/21 06/16/21 06/16/21 22:15 22:20 22:25 Temperature Pulse Rate 76 71 78 Respiratory Rate Blood Pressure Blood Pressure [Right] O2 Sat by Pulse 98 99 98 Oximetry O2 Sat by Pulse Oximetry [ Bilateral Throughout] 06/16/21 06/16/21 06/16/21 22:30 22:33 22:35 Temperature Pulse Rate 79 77 72 Respiratory Rate Blood Pressure 134/64 Blood Pressure [Right] O2 Sat by Pulse 98 93 99 Oximetry O2 Sat by Pulse Oximetry [ Bilateral Throughout] 06/16/21 06/16/21 06/16/21 22:40 22:45 22:50 Temperature Pulse Rate 72 81 75 Respiratory Rate Blood Pressure Blood Pressure [Right] O2 Sat by Pulse 98 98 98 Oximetry O2 Sat by Pulse Oximetry [ Bilateral Throughout] 06/16/21 06/16/21 06/16/21 22:55 23:00 23:03 Temperature Pulse Rate 76 80 77 Respiratory Rate Blood Pressure 136/66 Blood Pressure [Right] O2 Sat by Pulse 97 98 94 Oximetry O2 Sat by Pulse Oximetry [ Bilateral Throughout] 06/16/21 06/16/21 06/16/21 23:05 23:10 23:15 Temperature Pulse Rate 76 78 85 Respiratory Rate Blood Pressure Blood Pressure [Right] O2 Sat by Pulse 98 98 98 Oximetry O2 Sat by Pulse Oximetry [ Bilateral Throughout] 06/16/21 06/16/21 06/16/21 23:20 23:25 23:30 Temperature Pulse Rate 78 86 76 Respiratory Rate Blood Pressure Blood Pressure [Right] O2 Sat by Pulse 97 97 99 Oximetry O2 Sat by Pulse Oximetry [ Bilateral Throughout] 06/16/21 06/16/21 06/16/21 23:33 23:40 23:45 Temperature Pulse Rate 80 80 86 Respiratory Rate Blood Pressure 128/67 Blood Pressure [Right] O2 Sat by Pulse 97 98 Oximetry O2 Sat by Pulse Oximetry [ Bilateral Throughout] 06/16/21 06/16/21 06/17/21 23:50 23:55 00:00 Temperature Pulse Rate 78 92 H 79 Respiratory Rate Blood Pressure Blood Pressure [Right] O2 Sat by Pulse 97 97 97 Oximetry O2 Sat by Pulse Oximetry [ Bilateral Throughout] 06/17/21 06/17/21 06/17/21 00:03 00:05 00:10 Temperature Pulse Rate 84 84 80 Respiratory Rate Blood Pressure 137/71 Blood Pressure [Right] O2 Sat by Pulse 94 97 97 Oximetry O2 Sat by Pulse Oximetry [ Bilateral Throughout] 06/17/21 06/17/21 06/17/21 00:15 00:20 00:25 Temperature Pulse Rate 85 97 H 77 Respiratory Rate Blood Pressure Blood Pressure [Right] O2 Sat by Pulse 98 97 97 Oximetry O2 Sat by Pulse Oximetry [ Bilateral Throughout] 06/17/21 06/17/21 06/17/21 00:30 00:34 00:35 Temperature Pulse Rate 88 75 92 H Respiratory Rate Blood Pressure 132/63 Blood Pressure [Right] O2 Sat by Pulse 97 94 100 Oximetry O2 Sat by Pulse Oximetry [ Bilateral Throughout] 06/17/21 06/17/21 06/17/21 00:40 00:45 00:50 Temperature Pulse Rate 80 83 81 Respiratory Rate Blood Pressure Blood Pressure [Right] O2 Sat by Pulse 98 97 97 Oximetry O2 Sat by Pulse Oximetry [ Bilateral Throughout] 06/17/21 06/17/21 06/17/21 00:55 01:00 01:03 Temperature Pulse Rate 83 87 77 Respiratory Rate Blood Pressure 127/64 Blood Pressure [Right] O2 Sat by Pulse 99 98 Oximetry O2 Sat by Pulse Oximetry [ Bilateral Throughout] 06/17/21 06/17/21 06/17/21 01:05 01:10 01:15 Temperature Pulse Rate 76 80 77 Respiratory Rate Blood Pressure Blood Pressure [Right] O2 Sat by Pulse 98 97 97 Oximetry O2 Sat by Pulse Oximetry [ Bilateral Throughout] 06/17/21 06/17/21 06/17/21 01:20 01:23 01:25 Temperature Pulse Rate 95 H 85 81 Respiratory Rate Blood Pressure Blood Pressure [Right] O2 Sat by Pulse 96 93 94 Oximetry O2 Sat by Pulse Oximetry [ Bilateral Throughout] 06/17/21 06/17/21 06/17/21 01:30 01:33 01:35 Temperature Pulse Rate 75 79 78 Respiratory Rate Blood Pressure 130/63 Blood Pressure [Right] O2 Sat by Pulse 97 98 Oximetry O2 Sat by Pulse Oximetry [ Bilateral Throughout] 06/17/21 06/17/21 06/17/21 01:40 01:45 01:50 Temperature Pulse Rate 75 78 72 Respiratory Rate Blood Pressure Blood Pressure [Right] O2 Sat by Pulse 99 98 99 Oximetry O2 Sat by Pulse Oximetry [ Bilateral Throughout] 06/17/21 06/17/21 06/17/21 01:55 02:00 02:05 Temperature Pulse Rate 76 76 68 Respiratory Rate Blood Pressure Blood Pressure [Right] O2 Sat by Pulse 97 97 97 Oximetry O2 Sat by Pulse Oximetry [ Bilateral Throughout] 06/17/21 06/17/21 06/17/21 02:10 02:15 02:20 Temperature Pulse Rate 72 74 83 Respiratory Rate Blood Pressure Blood Pressure [Right] O2 Sat by Pulse 96 95 100 Oximetry O2 Sat by Pulse Oximetry [ Bilateral Throughout] 06/17/21 06/17/21 06/17/21 02:25 02:28 02:30 Temperature Pulse Rate 72 63 72 Respiratory Rate Blood Pressure Blood Pressure [Right] O2 Sat by Pulse 98 94 96 Oximetry O2 Sat by Pulse Oximetry [ Bilateral Throughout] 06/17/21 06/17/21 06/17/21 02:35 02:40 02:45 Temperature Pulse Rate 70 64 87 Respiratory Rate Blood Pressure 142/74 Blood Pressure [Right] O2 Sat by Pulse 97 97 98 Oximetry O2 Sat by Pulse Oximetry [ Bilateral Throughout] 06/17/21 06/17/21 06/17/21 02:47 02:50 02:55 Temperature Pulse Rate 61 64 82 Respiratory Rate Blood Pressure Blood Pressure [Right] O2 Sat by Pulse 94 98 96 Oximetry O2 Sat by Pulse Oximetry [ Bilateral Throughout] 06/17/21 06/17/21 06/17/21 03:00 03:02 03:05 Temperature Pulse Rate 65 63 63 Respiratory Rate Blood Pressure Blood Pressure [Right] O2 Sat by Pulse 98 92 92 Oximetry O2 Sat by Pulse Oximetry [ Bilateral Throughout] 06/17/21 06/17/21 06/17/21 03:19 03:24 03:29 Temperature Pulse Rate 89 85 83 Respiratory Rate Blood Pressure Blood Pressure [Right] O2 Sat by Pulse 88 99 99 Oximetry O2 Sat by Pulse Oximetry [ Bilateral Throughout] 06/17/21 06/17/21 06/17/21 03:34 03:40 03:45 Temperature Pulse Rate 83 77 78 Respiratory Rate Blood Pressure 119/56 Blood Pressure [Right] O2 Sat by Pulse 99 99 99 Oximetry O2 Sat by Pulse Oximetry [ Bilateral Throughout] 06/17/21 06/17/21 06/17/21 03:50 03:55 04:00 Temperature Pulse Rate 84 73 90 Respiratory Rate Blood Pressure Blood Pressure [Right] O2 Sat by Pulse 99 97 97 Oximetry O2 Sat by Pulse Oximetry [ Bilateral Throughout] 06/17/21 06/17/21 06/17/21 04:05 04:10 04:15 Temperature Pulse Rate 74 69 83 Respiratory Rate Blood Pressure Blood Pressure [Right] O2 Sat by Pulse 98 97 98 Oximetry O2 Sat by Pulse Oximetry [ Bilateral Throughout] 06/17/21 06/17/21 06/17/21 04:20 04:25 04:28 Temperature Pulse Rate 88 79 68 Respiratory Rate Blood Pressure Blood Pressure [Right] O2 Sat by Pulse 98 100 92 Oximetry O2 Sat by Pulse Oximetry [ Bilateral Throughout] 06/17/21 06/17/21 06/17/21 04:30 04:35 04:40 Temperature Pulse Rate 69 82 69 Respiratory Rate Blood Pressure Blood Pressure [Right] O2 Sat by Pulse 96 99 100 Oximetry O2 Sat by Pulse Oximetry [ Bilateral Throughout] 06/17/21 06/17/21 06/17/21 04:45 04:50 04:55 Temperature Pulse Rate 75 68 68 Respiratory Rate Blood Pressure Blood Pressure [Right] O2 Sat by Pulse 97 96 97 Oximetry O2 Sat by Pulse Oximetry [ Bilateral Throughout] 06/17/21 06/17/21 06/17/21 05:00 05:05 05:10 Temperature Pulse Rate 73 67 71 Respiratory Rate Blood Pressure Blood Pressure [Right] O2 Sat by Pulse 96 95 97 Oximetry O2 Sat by Pulse Oximetry [ Bilateral Throughout] 06/17/21 06/17/21 06/17/21 05:15 05:20 05:25 Temperature Pulse Rate 71 82 78 Respiratory Rate Blood Pressure Blood Pressure [Right] O2 Sat by Pulse 95 97 98 Oximetry O2 Sat by Pulse Oximetry [ Bilateral Throughout] 06/17/21 06/17/21 06/17/21 05:30 05:35 05:40 Temperature Pulse Rate 72 78 76 Respiratory Rate Blood Pressure Blood Pressure [Right] O2 Sat by Pulse 97 98 97 Oximetry O2 Sat by Pulse Oximetry [ Bilateral Throughout] 06/17/21 06/17/21 06/17/21 05:45 05:50 05:55 Temperature Pulse Rate 71 77 74 Respiratory Rate Blood Pressure Blood Pressure [Right] O2 Sat by Pulse 97 95 97 Oximetry O2 Sat by Pulse Oximetry [ Bilateral Throughout] 06/17/21 06/17/21 06/17/21 05:57 06:00 06:05 Temperature Pulse Rate 84 79 78 Respiratory Rate Blood Pressure Blood Pressure [Right] O2 Sat by Pulse 92 98 97 Oximetry O2 Sat by Pulse Oximetry [ Bilateral Throughout] 06/17/21 06/17/21 06/17/21 06:10 06:23 06:28 Temperature Pulse Rate 93 H 91 H 91 H Respiratory Rate Blood Pressure Blood Pressure [Right] O2 Sat by Pulse 98 99 99 Oximetry O2 Sat by Pulse Oximetry [ Bilateral Throughout] 06/17/21 06/17/21 06/17/21 06:33 06:38 06:43 Temperature Pulse Rate 85 76 91 H Respiratory Rate Blood Pressure Blood Pressure [Right] O2 Sat by Pulse 97 97 96 Oximetry O2 Sat by Pulse Oximetry [ Bilateral Throughout] 06/17/21 06/17/21 06/17/21 06:48 06:53 06:58 Temperature Pulse Rate 94 H 86 75 Respiratory Rate Blood Pressure Blood Pressure [Right] O2 Sat by Pulse 97 98 97 Oximetry O2 Sat by Pulse Oximetry [ Bilateral Throughout] 06/17/21 06/17/21 06/17/21 07:03 07:08 07:13 Temperature Pulse Rate 75 78 81 Respiratory Rate Blood Pressure Blood Pressure [Right] O2 Sat by Pulse 98 97 100 Oximetry O2 Sat by Pulse Oximetry [ Bilateral Throughout] 06/17/21 06/17/21 06/17/21 07:18 07:23 07:25 Temperature Pulse Rate 82 74 Respiratory Rate Blood Pressure Blood Pressure [Right] O2 Sat by Pulse 99 98 Oximetry O2 Sat by Pulse 97 Oximetry [ Bilateral Throughout] 06/17/21 06/17/21 06/17/21 07:28 07:33 07:38 Temperature Pulse Rate 79 79 100 H Respiratory Rate Blood Pressure Blood Pressure [Right] O2 Sat by Pulse 97 97 99 Oximetry O2 Sat by Pulse Oximetry [ Bilateral Throughout] 06/17/21 06/17/21 06/17/21 07:43 07:48 07:53 Temperature Pulse Rate 78 86 92 H Respiratory Rate Blood Pressure Blood Pressure [Right] O2 Sat by Pulse 98 99 100 Oximetry O2 Sat by Pulse Oximetry [ Bilateral Throughout] 06/17/21 06/17/21 06/17/21 07:57 07:58 08:02 Temperature 97.4 F L Pulse Rate 85 86 90 Respiratory 16 Rate Blood Pressure Blood Pressure 132/69 [Right] O2 Sat by Pulse 93 99 99 Oximetry O2 Sat by Pulse Oximetry [ Bilateral Throughout] 06/17/21 06/17/21 08:03 08:05 Temperature Pulse Rate 87 81 Respiratory Rate Blood Pressure 132/69 Blood Pressure [Right] O2 Sat by Pulse 97 94 Oximetry O2 Sat by Pulse Oximetry [ Bilateral Throughout] - Exam Cardiovascular: Regular rate Lungs: Clear to auscultation, Normal air movement Abdomen: Present: normal appearance, soft Vulva: both: normal Uterus: Present: normal FHR: category 1 Uterine Contraction Monitor Mode: External Cervical Dilatation: 3 (BBOW) Cervical Effacement Percentage: 90 station: -2 Uterine Contraction Frequency (min): 3-5 Uterine Contraction Duration: 60 Uterine Contraction Pattern: Regular Uterine Tone Measurement Phase: Contraction Uterine Contraction Intensity: Moderate Extremities: normal Deep Tendon Reflex Grade: Normal +2 - Labs Labs: Abnormal Labs 06/15/21 21:41 WBC 12.9 H RBC 3.60 L Hgb 9.3 L Hct 28.5 L MCH 26 L RDW 17.2 H Laboratory Results - last 24 hr 06/16/21 09:24 Coronavirus (PCR) Negative
[2021-06-17] MEDS ORDERED: ePHEDrine SULFATE 50 MG/1 ML INJ IV PRN (10:25)
[2021-06-17] MEDS ORDERED: NALOXONE 2 MG/2 ML INJ IV PRN (10:25)
--- NOTE | 2021-06-17 10:28 | Anesthesia Consultation ---
Anesthesia Consult and Med Hx Date of service: 06/17/21 - Airway Anesthetic Teeth Evaluation: Poor ROM Head & Neck: Adequate Mental/Hyoid Distance: Adequate Mallampati Class: Class II Intubation Access Assessment: Good - Pulmonary Exam CTA: Yes - Cardiac Exam Cardiac Exam: RRR - Pre-Operative Health Status ASA Pre-Surgery Classification: ASA2 Proposed Anesthetic Plan: Epidural - Pulmonary Hx Smoking: No Hx Asthma: No Hx Respiratory Symptoms: No SOB: No COPD: No Home Oxygen Therapy: No Hx Pneumonia: No Hx Sleep Apnea: No - Cardiovascular System Hx Hypertension: No Hx Coronary Artery Disease: No Hx Heart Attack/AMI: No Hx Angina: No Hx Percutaneous Transluminal Coronary Angioplasty (PTCA): No Hx Cardia Arrhythmia: No Hx Pacemaker: No Hx Internal Defibrillator: No Hx Valvular Heart Disease: No Hx Heart Murmur: No Hx Peripheral Vascular Disease: No - Central Nervous System Hx Neuromuscular Disorder: No Hx Seizures: No CVA: No Hx Back Pain: Yes Hx Psychiatric Problems: No - Gastrointestinal Hx Ulcer: No Hx Gastroesophageal Reflux Disease: No - Endocrine Hx Renal Disease: No Hx End Stage Renal Disease: No Hx Cirrhosis: No Hx Liver Disease: No Hx Insulin Dependent Diabetes: No Hx Non-Insulin Dependent Diabetes: No Hx Thyroid Disease: No Hx Hypothyroidism: No Hx Hyperthyroidism: No - Hematic Hx Anemia: No Hx Sickle Cell Disease: No - Other Systems Hx Alcohol Use: Yes Hx Substance Use: No Hx Cancer: No Hx Obesity: Yes
[2021-06-17] MEDS ORDERED: fentaNYL-BUPIV 2 MCG/ML-0.125% 200 MCG/100 ML BAG EPIDURAL SCH (11:00)
--- NOTE | 2021-06-17 11:20 | Progress Note ---
Labor Epidural - Labor Epidural Start Time: 10:38 Stop Time: 11:08 Performed by:: GABRIELLE MORAN Procedure: Patient is requesting a laboring epidural for laboring pain. Patient IDed, H&P reviewed, all questions and concerns were answered, and consent was signed. Timeout was performed at bedside. Patient in sitting position. Sterile prep and drape was performed. [3] ml of 1% lidocaine skin wheal at L[3]- L [4]. 18- gauge Flywheel epidural needle was advanced to loss of resistance with saline technique 9cm. Negative CSF negative blood. Epidural catheter advanced to [12] centimeters. [NEGATIVE] Aspiration [NEGATIVE] test dose. Sterile dressing applied. Patient tolerated procedure.
--- NOTE | 2021-06-17 13:17 | Progress Note ---
Assessment and Plan patient comfortable s/p epidural, BBOW AROM - moderate amount of clear fluid noted. Patient requesting to sit up, advised she can sit in thrown position for approx 30 minutes and then will need to be repositioned from side to side to assist with rotation and decent of head. pt is hesitant to accept teaching from nursing staff/provider. Will continue to provide additional education. - Patient Problems (1) 40 weeks gestation of Current Visit: Yes Status: Acute (2) BMI 45.0-49.9, adult Current Visit: Yes Status: Acute (3) GBS (group B Streptococcus carrier), +RV culture, currently Current Visit: Yes Status: Acute Plan to address problem: Ampicillin q4hrs when in active labor Subjective - Subjective Date of service: 06/17/21 Principal diagnosis: IUP @ 41w1d, IOL d/t postdates and AMFM recommendation Interval history: EDC Confirmation: 06/09/2021 Past History : 1 Term Births: 0 Premature Births: 0 Living Children: 0 Para: 0 Mult. Births: 0 Prev : 0 Aborta: 0 Elect. Ab: 0 Spont. Ab: 0 Ectopics: 0 Past Medical History: Reviewed history and no changes required: Negative Past Medical History Past Surgical History: Reviewed history and no changes required: negative Past Medical History Anesthesia Complications: negative Anemia: negative Autoimmune Disorder: negative Bleeding Disorder: negative Blood Transfusions: negative Breast Disease: negative Diabetes: negative Heart Disease: negative Hypertension: negative Hepatitis/Liver Disease: negative Kidney Disease/UTI: negative Neurologic/Epilepsy/Migraines: negative Phlebitis/Varicosities: negative Psychiatric: negative Pulmonary Disease/Asthma: negative Thyroid Disease: negative Hospitalizations: negative Surgery (Non-sales order coordinator): negative Abnormal PAP: negative MARY Exposure: negative Infertility: negative Uterine Anomaly: negative Uterine Surgery (not C/S): negative Other Gynecologic Problems: negative Family Hx: DM: PGM CA: Breast Paternal Aunt, Mother ovarian Infection History Hx of STD: none HIV Risk Eval: low risk Hepatitis B Risk Eval: low risk Personal hx. of genital herpes: no Partner hx. of genital herpes: no Rash, Viral, or Febrile illness since last LMP? no Varicella/Chicken Pox Status: No TB Risk: no Genetic History Congenital Heart Defect: Mom: no Dad: no Kyra Disease: Mom: no Dad: no Thalassemia Mom: no Dad: no Neural Tube Defect Mom: no Dad: no Down's Syndrome Mom: no Dad: no Jay-Sachs Mom: no Dad: no Sickle Cell Disease/Trait Mom: no Dad: no Hemophilia Mom: no Dad: no Muscular Dystrophy Mom: no Dad: no Cystic Fibrosis Mom: no Dad: no [place] Chorea Mom: no Dad: no Mental Retardation Mom: no Dad: no Fragile X Mom: no Dad: no Other Genetic/Chromosomal Disorder Mom: no Dad: no Child w/other defect Mom: no Dad: no Enviromental Exposures Xray Exposure: no Medication, drug, or alcohol use since LMP: no Chemical/Other Exposure: no Exposure to Cat Liter: no Hx of Parvovirus (Fifth Disease): no Occupational Exposure to Children: none Active Medications (reviewed today): None Current Allergies (reviewed today): No known allergies Patient reports: no new complaints (comfortable with epidural) Objective - Vital Signs Vital Signs: Vital Signs - 12hr 06/17/21 06/17/21 06/17/21 01:15 01:20 01:23 Temperature Pulse Rate 77 95 H 85 Respiratory Rate Blood Pressure Blood Pressure [Right] O2 Sat by Pulse 97 96 93 Oximetry O2 Sat by Pulse Oximetry [ Bilateral Throughout] 06/17/21 06/17/21 06/17/21 01:25 01:30 01:33 Temperature Pulse Rate 81 75 79 Respiratory Rate Blood Pressure 130/63 Blood Pressure [Right] O2 Sat by Pulse 94 97 Oximetry O2 Sat by Pulse Oximetry [ Bilateral Throughout] 06/17/21 06/17/21 06/17/21 01:35 01:40 01:45 Temperature Pulse Rate 78 75 78 Respiratory Rate Blood Pressure Blood Pressure [Right] O2 Sat by Pulse 98 99 98 Oximetry O2 Sat by Pulse Oximetry [ Bilateral Throughout] 06/17/21 06/17/21 06/17/21 01:50 01:55 02:00 Temperature Pulse Rate 72 76 76 Respiratory Rate Blood Pressure Blood Pressure [Right] O2 Sat by Pulse 99 97 97 Oximetry O2 Sat by Pulse Oximetry [ Bilateral Throughout] 06/17/21 06/17/21 06/17/21 02:05 02:10 02:15 Temperature Pulse Rate 68 72 74 Respiratory Rate Blood Pressure Blood Pressure [Right] O2 Sat by Pulse 97 96 95 Oximetry O2 Sat by Pulse Oximetry [ Bilateral Throughout] 06/17/21 06/17/21 06/17/21 02:20 02:25 02:28 Temperature Pulse Rate 83 72 63 Respiratory Rate Blood Pressure Blood Pressure [Right] O2 Sat by Pulse 100 98 94 Oximetry O2 Sat by Pulse Oximetry [ Bilateral Throughout] 06/17/21 06/17/21 06/17/21 02:30 02:35 02:40 Temperature Pulse Rate 72 70 64 Respiratory Rate Blood Pressure 142/74 Blood Pressure [Right] O2 Sat by Pulse 96 97 97 Oximetry O2 Sat by Pulse Oximetry [ Bilateral Throughout] 06/17/21 06/17/21 06/17/21 02:45 02:47 02:50 Temperature Pulse Rate 87 61 64 Respiratory Rate Blood Pressure Blood Pressure [Right] O2 Sat by Pulse 98 94 98 Oximetry O2 Sat by Pulse Oximetry [ Bilateral Throughout] 06/17/21 06/17/21 06/17/21 02:55 03:00 03:02 Temperature Pulse Rate 82 65 63 Respiratory Rate Blood Pressure Blood Pressure [Right] O2 Sat by Pulse 96 98 92 Oximetry O2 Sat by Pulse Oximetry [ Bilateral Throughout] 06/17/21 06/17/21 06/17/21 03:05 03:19 03:24 Temperature Pulse Rate 63 89 85 Respiratory Rate Blood Pressure Blood Pressure [Right] O2 Sat by Pulse 92 88 99 Oximetry O2 Sat by Pulse Oximetry [ Bilateral Throughout] 06/17/21 06/17/21 06/17/21 03:29 03:34 03:40 Temperature Pulse Rate 83 83 77 Respiratory Rate Blood Pressure 119/56 Blood Pressure [Right] O2 Sat by Pulse 99 99 99 Oximetry O2 Sat by Pulse Oximetry [ Bilateral Throughout] 06/17/21 06/17/21 06/17/21 03:45 03:50 03:55 Temperature Pulse Rate 78 84 73 Respiratory Rate Blood Pressure Blood Pressure [Right] O2 Sat by Pulse 99 99 97 Oximetry O2 Sat by Pulse Oximetry [ Bilateral Throughout] 06/17/21 06/17/21 06/17/21 04:00 04:05 04:10 Temperature Pulse Rate 90 74 69 Respiratory Rate Blood Pressure Blood Pressure [Right] O2 Sat by Pulse 97 98 97 Oximetry O2 Sat by Pulse Oximetry [ Bilateral Throughout] 06/17/21 06/17/21 06/17/21 04:15 04:20 04:25 Temperature Pulse Rate 83 88 79 Respiratory Rate Blood Pressure Blood Pressure [Right] O2 Sat by Pulse 98 98 100 Oximetry O2 Sat by Pulse Oximetry [ Bilateral Throughout] 06/17/21 06/17/21 06/17/21 04:28 04:30 04:35 Temperature Pulse Rate 68 69 82 Respiratory Rate Blood Pressure Blood Pressure [Right] O2 Sat by Pulse 92 96 99 Oximetry O2 Sat by Pulse Oximetry [ Bilateral Throughout] 06/17/21 06/17/21 06/17/21 04:40 04:45 04:50 Temperature Pulse Rate 69 75 68 Respiratory Rate Blood Pressure Blood Pressure [Right] O2 Sat by Pulse 100 97 96 Oximetry O2 Sat by Pulse Oximetry [ Bilateral Throughout] 06/17/21 06/17/21 06/17/21 04:55 05:00 05:05 Temperature Pulse Rate 68 73 67 Respiratory Rate Blood Pressure Blood Pressure [Right] O2 Sat by Pulse 97 96 95 Oximetry O2 Sat by Pulse Oximetry [ Bilateral Throughout] 06/17/21 06/17/21 06/17/21 05:10 05:15 05:20 Temperature Pulse Rate 71 71 82 Respiratory Rate Blood Pressure Blood Pressure [Right] O2 Sat by Pulse 97 95 97 Oximetry O2 Sat by Pulse Oximetry [ Bilateral Throughout] 06/17/21 06/17/21 06/17/21 05:25 05:30 05:35 Temperature Pulse Rate 78 72 78 Respiratory Rate Blood Pressure Blood Pressure [Right] O2 Sat by Pulse 98 97 98 Oximetry O2 Sat by Pulse Oximetry [ Bilateral Throughout] 06/17/21 06/17/21 06/17/21 05:40 05:45 05:50 Temperature Pulse Rate 76 71 77 Respiratory Rate Blood Pressure Blood Pressure [Right] O2 Sat by Pulse 97 97 95 Oximetry O2 Sat by Pulse Oximetry [ Bilateral Throughout] 06/17/21 06/17/21 06/17/21 05:55 05:57 06:00 Temperature Pulse Rate 74 84 79 Respiratory Rate Blood Pressure Blood Pressure [Right] O2 Sat by Pulse 97 92 98 Oximetry O2 Sat by Pulse Oximetry [ Bilateral Throughout] 06/17/21 06/17/21 06/17/21 06:05 06:10 06:23 Temperature Pulse Rate 78 93 H 91 H Respiratory Rate Blood Pressure Blood Pressure [Right] O2 Sat by Pulse 97 98 99 Oximetry O2 Sat by Pulse Oximetry [ Bilateral Throughout] 06/17/21 06/17/21 06/17/21 06:28 06:33 06:38 Temperature Pulse Rate 91 H 85 76 Respiratory Rate Blood Pressure Blood Pressure [Right] O2 Sat by Pulse 99 97 97 Oximetry O2 Sat by Pulse Oximetry [ Bilateral Throughout] 06/17/21 06/17/21 06/17/21 06:43 06:48 06:53 Temperature Pulse Rate 91 H 94 H 86 Respiratory Rate Blood Pressure Blood Pressure [Right] O2 Sat by Pulse 96 97 98 Oximetry O2 Sat by Pulse Oximetry [ Bilateral Throughout] 06/17/21 06/17/21 06/17/21 06:58 07:03 07:08 Temperature Pulse Rate 75 75 78 Respiratory Rate Blood Pressure Blood Pressure [Right] O2 Sat by Pulse 97 98 97 Oximetry O2 Sat by Pulse Oximetry [ Bilateral Throughout] 06/17/21 06/17/21 06/17/21 07:13 07:18 07:23 Temperature Pulse Rate 81 82 74 Respiratory Rate Blood Pressure Blood Pressure [Right] O2 Sat by Pulse 100 99 98 Oximetry O2 Sat by Pulse Oximetry [ Bilateral Throughout] 06/17/21 06/17/21 06/17/21 07:25 07:28 07:33 Temperature Pulse Rate 79 79 Respiratory Rate Blood Pressure Blood Pressure [Right] O2 Sat by Pulse 97 97 Oximetry O2 Sat by Pulse 97 Oximetry [ Bilateral Throughout] 06/17/21 06/17/21 06/17/21 07:38 07:43 07:48 Temperature Pulse Rate 100 H 78 86 Respiratory Rate Blood Pressure Blood Pressure [Right] O2 Sat by Pulse 99 98 99 Oximetry O2 Sat by Pulse Oximetry [ Bilateral Throughout] 06/17/21 06/17/21 06/17/21 07:53 07:57 07:58 Temperature Pulse Rate 92 H 85 86 Respiratory Rate Blood Pressure Blood Pressure [Right] O2 Sat by Pulse 100 93 99 Oximetry O2 Sat by Pulse Oximetry [ Bilateral Throughout] 06/17/21 06/17/21 06/17/21 08:02 08:03 08:05 Temperature 97.4 F L Pulse Rate 90 87 81 Respiratory 16 Rate Blood Pressure 132/69 Blood Pressure 132/69 [Right] O2 Sat by Pulse 99 97 94 Oximetry O2 Sat by Pulse Oximetry [ Bilateral Throughout] 06/17/21 06/17/21 06/17/21 08:08 08:23 08:28 Temperature Pulse Rate 86 93 H 80 Respiratory Rate Blood Pressure Blood Pressure [Right] O2 Sat by Pulse 99 99 96 Oximetry O2 Sat by Pulse Oximetry [ Bilateral Throughout] 06/17/21 06/17/21 06/17/21 08:33 08:38 08:42 Temperature Pulse Rate 83 81 81 Respiratory Rate Blood Pressure Blood Pressure [Right] O2 Sat by Pulse 99 100 94 Oximetry O2 Sat by Pulse Oximetry [ Bilateral Throughout] 06/17/21 06/17/21 06/17/21 08:43 08:48 08:51 Temperature Pulse Rate 93 H 85 86 Respiratory Rate Blood Pressure Blood Pressure [Right] O2 Sat by Pulse 100 99 93 Oximetry O2 Sat by Pulse Oximetry [ Bilateral Throughout] 06/17/21 06/17/21 06/17/21 08:53 08:57 08:58 Temperature Pulse Rate 82 66 76 Respiratory Rate Blood Pressure Blood Pressure [Right] O2 Sat by Pulse 97 92 96 Oximetry O2 Sat by Pulse Oximetry [ Bilateral Throughout] 06/17/21 06/17/21 06/17/21 09:03 09:07 09:08 Temperature Pulse Rate 75 92 H 89 Respiratory Rate Blood Pressure Blood Pressure [Right] O2 Sat by Pulse 99 93 100 Oximetry O2 Sat by Pulse Oximetry [ Bilateral Throughout] 06/17/21 06/17/21 06/17/21 09:13 09:18 09:23 Temperature Pulse Rate 95 H 71 76 Respiratory Rate Blood Pressure Blood Pressure [Right] O2 Sat by Pulse 100 96 100 Oximetry O2 Sat by Pulse Oximetry [ Bilateral Throughout] 06/17/21 06/17/21 06/17/21 09:28 09:30 09:33 Temperature Pulse Rate 65 62 71 Respiratory Rate Blood Pressure Blood Pressure [Right] O2 Sat by Pulse 97 94 96 Oximetry O2 Sat by Pulse Oximetry [ Bilateral Throughout] 06/17/21 06/17/21 06/17/21 09:38 09:43 09:48 Temperature Pulse Rate 61 79 76 Respiratory Rate Blood Pressure Blood Pressure [Right] O2 Sat by Pulse 100 98 98 Oximetry O2 Sat by Pulse Oximetry [ Bilateral Throughout] 06/17/21 06/17/21 06/17/21 09:53 10:10 10:15 Temperature Pulse Rate 77 83 83 Respiratory Rate Blood Pressure Blood Pressure [Right] O2 Sat by Pulse 99 99 99 Oximetry O2 Sat by Pulse Oximetry [ Bilateral Throughout] 06/17/21 06/17/21 06/17/21 10:20 10:25 10:30 Temperature Pulse Rate 61 73 90 Respiratory Rate Blood Pressure Blood Pressure [Right] O2 Sat by Pulse 86 99 99 Oximetry O2 Sat by Pulse Oximetry [ Bilateral Throughout] 06/17/21 06/17/21 06/17/21 10:35 10:40 10:45 Temperature Pulse Rate 93 H 84 87 Respiratory Rate Blood Pressure Blood Pressure [Right] O2 Sat by Pulse 100 99 100 Oximetry O2 Sat by Pulse Oximetry [ Bilateral Throughout] 06/17/21 06/17/21 06/17/21 10:50 10:55 11:00 Temperature Pulse Rate 79 83 91 H Respiratory Rate Blood Pressure Blood Pressure [Right] O2 Sat by Pulse 100 100 100 Oximetry O2 Sat by Pulse Oximetry [ Bilateral Throughout] 06/17/21 06/17/21 06/17/21 11:05 11:07 11:09 Temperature Pulse Rate 83 78 88 Respiratory Rate Blood Pressure 124/65 139/81 Blood Pressure [Right] O2 Sat by Pulse 100 Oximetry O2 Sat by Pulse Oximetry [ Bilateral Throughout] 06/17/21 06/17/21 06/17/21 11:10 11:11 11:13 Temperature Pulse Rate 85 84 82 Respiratory Rate Blood Pressure 139/76 125/65 Blood Pressure [Right] O2 Sat by Pulse 100 Oximetry O2 Sat by Pulse Oximetry [ Bilateral Throughout] 06/17/21 06/17/21 06/17/21 11:15 11:17 11:19 Temperature Pulse Rate 79 95 H 82 Respiratory Rate Blood Pressure 116/56 110/56 102/53 Blood Pressure [Right] O2 Sat by Pulse 99 Oximetry O2 Sat by Pulse Oximetry [ Bilateral Throughout] 06/17/21 06/17/21 06/17/21 11:20 11:21 11:23 Temperature Pulse Rate 87 83 76 Respiratory Rate Blood Pressure 101/55 105/55 Blood Pressure [Right] O2 Sat by Pulse 100 Oximetry O2 Sat by Pulse Oximetry [ Bilateral Throughout] 06/17/21 06/17/21 06/17/21 11:25 11:27 11:29 Temperature Pulse Rate 74 71 80 Respiratory Rate Blood Pressure 110/53 116/56 111/56 Blood Pressure [Right] O2 Sat by Pulse 98 Oximetry O2 Sat by Pulse Oximetry [ Bilateral Throughout] 06/17/21 06/17/21 06/17/21 11:30 11:31 11:33 Temperature Pulse Rate 81 77 72 Respiratory Rate Blood Pressure 99/55 104/56 Blood Pressure [Right] O2 Sat by Pulse 98 Oximetry O2 Sat by Pulse Oximetry [ Bilateral Throughout] 06/17/21 06/17/21 06/17/21 11:35 11:37 11:40 Temperature Pulse Rate 71 76 69 Respiratory Rate Blood Pressure 97/54 98/50 118/67 Blood Pressure [Right] O2 Sat by Pulse 98 98 Oximetry O2 Sat by Pulse Oximetry [ Bilateral Throughout] 06/17/21 06/17/21 06/17/21 11:41 11:42 11:43 Temperature Pulse Rate 55 L 76 65 Respiratory Rate Blood Pressure 119/65 127/74 Blood Pressure [Right] O2 Sat by Pulse 94 Oximetry O2 Sat by Pulse Oximetry [ Bilateral Throughout] 06/17/21 06/17/21 06/17/21 11:45 11:47 11:48 Temperature Pulse Rate 66 63 79 Respiratory Rate Blood Pressure 114/61 117/64 Blood Pressure [Right] O2 Sat by Pulse 96 94 Oximetry O2 Sat by Pulse Oximetry [ Bilateral Throughout] 06/17/21 06/17/21 06/17/21 11:49 11:50 11:51 Temperature Pulse Rate 72 65 68 Respiratory Rate Blood Pressure 127/66 126/72 Blood Pressure [Right] O2 Sat by Pulse 98 Oximetry O2 Sat by Pulse Oximetry [ Bilateral Throughout] 06/17/21 06/17/21 06/17/21 11:53 12:00 12:01 Temperature Pulse Rate 71 69 74 Respiratory Rate Blood Pressure 130/77 128/80 Blood Pressure [Right] O2 Sat by Pulse 98 Oximetry O2 Sat by Pulse Oximetry [ Bilateral Throughout] 06/17/21 06/17/21 06/17/21 12:03 12:05 12:07 Temperature Pulse Rate 70 61 65 Respiratory Rate Blood Pressure 130/81 136/83 Blood Pressure [Right] O2 Sat by Pulse 98 94 Oximetry O2 Sat by Pulse Oximetry [ Bilateral Throughout] 06/17/21 06/17/21 06/17/21 12:10 12:15 12:20 Temperature Pulse Rate 74 72 65 Respiratory Rate Blood Pressure Blood Pressure [Right] O2 Sat by Pulse 95 96 96 Oximetry O2 Sat by Pulse Oximetry [ Bilateral Throughout] 06/17/21 06/17/21 06/17/21 12:21 12:22 12:25 Temperature Pulse Rate 73 67 65 Respiratory Rate Blood Pressure 138/74 Blood Pressure [Right] O2 Sat by Pulse 92 95 Oximetry O2 Sat by Pulse Oximetry [ Bilateral Throughout] 06/17/21 06/17/21 06/17/21 12:26 12:30 12:32 Temperature Pulse Rate 64 84 66 Respiratory Rate Blood Pressure Blood Pressure [Right] O2 Sat by Pulse 93 95 93 Oximetry O2 Sat by Pulse Oximetry [ Bilateral Throughout] 06/17/21 06/17/21 06/17/21 12:35 12:37 12:40 Temperature Pulse Rate 81 83 67 Respiratory Rate Blood Pressure 129/70 Blood Pressure [Right] O2 Sat by Pulse 99 97 Oximetry O2 Sat by Pulse Oximetry [ Bilateral Throughout] 06/17/21 06/17/21 06/17/21 12:41 12:45 12:47 Temperature Pulse Rate 67 75 79 Respiratory Rate Blood Pressure Blood Pressure [Right] O2 Sat by Pulse 91 97 94 Oximetry O2 Sat by Pulse Oximetry [ Bilateral Throughout] 06/17/21 06/17/21 06/17/21 12:50 12:52 12:55 Temperature Pulse Rate 69 80 71 Respiratory Rate Blood Pressure 117/64 Blood Pressure [Right] O2 Sat by Pulse 98 97 Oximetry O2 Sat by Pulse Oximetry [ Bilateral Throughout] 06/17/21 06/17/21 06/17/21 13:00 13:05 13:09 Temperature Pulse Rate 74 78 96 H Respiratory Rate Blood Pressure 125/68 Blood Pressure [Right] O2 Sat by Pulse 97 99 Oximetry O2 Sat by Pulse Oximetry [ Bilateral Throughout] - Exam Cardiovascular: Regular rate Lungs: Normal air movement Abdomen: Present: normal appearance, soft Vulva: both: normal FHR: category 1 Uterine Contraction Monitor Mode: External Cervical Dilatation: 6.5 (AROM - clear fluid) Cervical Effacement Percentage: 100 station: -1 Uterine Contraction Pattern: Regular Uterine Tone Measurement Phase: Contraction Uterine Contraction Intensity: Moderate Extremities: normal Deep Tendon Reflex Grade: Normal +2 - Labs Labs: Abnormal Labs 06/15/21 21:41 WBC 12.9 H RBC 3.60 L Hgb 9.3 L Hct 28.5 L MCH 26 L RDW 17.2 H Laboratory Results - last 24 hr 06/16/21 09:24 Coronavirus (PCR) Negative
--- NOTE | 2021-06-17 15:44 | Progress Note ---
Assessment and Plan reviewed fht w/ decels, unable to determine correlation to ctx d/t toco not being on mother's abdomen. IUPC and ISE placed without difficulty. Cervix unchanged - right side 100 effaced and left side slightly edematous. Patient turned to right side, peanut ball placed between legs. Pitocin infusing @ 16mu. decelerations in FHT appear to be with ctx. Will continue to monitor closely, discussed with patient if fht show signed of distress or she does not progress, an operative would be indicated. Patient verbalizes understanding. Dr. hernandez updated on status. - Patient Problems (1) 40 weeks gestation of Current Visit: Yes Status: Acute (2) BMI 45.0-49.9, adult Current Visit: Yes Status: Acute (3) GBS (group B Streptococcus carrier), +RV culture, currently Current Visit: Yes Status: Acute Subjective - Subjective Date of service: 06/17/21 Principal diagnosis: IUP @ 41w1d, IOL d/t postdates and AMFM recommendation Interval history: EDC Confirmation: 06/09/2021 Past History : 1 Term Births: 0 Premature Births: 0 Living Children: 0 Para: 0 Mult. Births: 0 Prev : 0 Aborta: 0 Elect. Ab: 0 Spont. Ab: 0 Ectopics: 0 Past Medical History: Reviewed history and no changes required: Negative Past Medical History Past Surgical History: Reviewed history and no changes required: negative Past Medical History Anesthesia Complications: negative Anemia: negative Autoimmune Disorder: negative Bleeding Disorder: negative Blood Transfusions: negative Breast Disease: negative Diabetes: negative Heart Disease: negative Hypertension: negative Hepatitis/Liver Disease: negative Kidney Disease/UTI: negative Neurologic/Epilepsy/Migraines: negative Phlebitis/Varicosities: negative Psychiatric: negative Pulmonary Disease/Asthma: negative Thyroid Disease: negative Hospitalizations: negative Surgery (Non-construction person): negative Abnormal PAP: negative MARY Exposure: negative Infertility: negative Uterine Anomaly: negative Uterine Surgery (not C/S): negative Other Gynecologic Problems: negative Family Hx: DM: PGM CA: Breast Paternal Aunt, Mother ovarian Infection History Hx of STD: none HIV Risk Eval: low risk Hepatitis B Risk Eval: low risk Personal hx. of genital herpes: no Partner hx. of genital herpes: no Rash, Viral, or Febrile illness since last LMP? no Varicella/Chicken Pox Status: No TB Risk: no Genetic History Congenital Heart Defect: Mom: no Dad: no Kyra Disease: Mom: no Dad: no Thalassemia Mom: no Dad: no Neural Tube Defect Mom: no Dad: no Down's Syndrome Mom: no Dad: no Jay-Sachs Mom: no Dad: no Sickle Cell Disease/Trait Mom: no Dad: no Hemophilia Mom: no Dad: no Muscular Dystrophy Mom: no Dad: no Cystic Fibrosis Mom: no Dad: no Custer Chorea Mom: no Dad: no Mental Retardation Mom: no Dad: no Fragile X Mom: no Dad: no Other Genetic/Chromosomal Disorder Mom: no Dad: no Child w/other defect Mom: no Dad: no Enviromental Exposures Xray Exposure: no Medication, drug, or alcohol use since LMP: no Chemical/Other Exposure: no Exposure to Cat Liter: no Hx of Parvovirus (Fifth Disease): no Occupational Exposure to Children: none Active Medications (reviewed today): None Current Allergies (reviewed today): No known allergies Patient reports: other (rectal pressure) Objective - Vital Signs Vital Signs: Vital Signs - 12hr 06/17/21 06/17/21 06/17/21 03:40 03:45 03:50 Temperature Pulse Rate 77 78 84 Respiratory Rate Blood Pressure Blood Pressure [Right] O2 Sat by Pulse 99 99 99 Oximetry O2 Sat by Pulse Oximetry [ Bilateral Throughout] 06/17/21 06/17/21 06/17/21 03:55 04:00 04:05 Temperature Pulse Rate 73 90 74 Respiratory Rate Blood Pressure Blood Pressure [Right] O2 Sat by Pulse 97 97 98 Oximetry O2 Sat by Pulse Oximetry [ Bilateral Throughout] 06/17/21 06/17/21 06/17/21 04:10 04:15 04:20 Temperature Pulse Rate 69 83 88 Respiratory Rate Blood Pressure Blood Pressure [Right] O2 Sat by Pulse 97 98 98 Oximetry O2 Sat by Pulse Oximetry [ Bilateral Throughout] 06/17/21 06/17/21 06/17/21 04:25 04:28 04:30 Temperature Pulse Rate 79 68 69 Respiratory Rate Blood Pressure Blood Pressure [Right] O2 Sat by Pulse 100 92 96 Oximetry O2 Sat by Pulse Oximetry [ Bilateral Throughout] 06/17/21 06/17/21 06/17/21 04:35 04:40 04:45 Temperature Pulse Rate 82 69 75 Respiratory Rate Blood Pressure Blood Pressure [Right] O2 Sat by Pulse 99 100 97 Oximetry O2 Sat by Pulse Oximetry [ Bilateral Throughout] 06/17/21 06/17/21 06/17/21 04:50 04:55 05:00 Temperature Pulse Rate 68 68 73 Respiratory Rate Blood Pressure Blood Pressure [Right] O2 Sat by Pulse 96 97 96 Oximetry O2 Sat by Pulse Oximetry [ Bilateral Throughout] 06/17/21 06/17/21 06/17/21 05:05 05:10 05:15 Temperature Pulse Rate 67 71 71 Respiratory Rate Blood Pressure Blood Pressure [Right] O2 Sat by Pulse 95 97 95 Oximetry O2 Sat by Pulse Oximetry [ Bilateral Throughout] 06/17/21 06/17/21 06/17/21 05:20 05:25 05:30 Temperature Pulse Rate 82 78 72 Respiratory Rate Blood Pressure Blood Pressure [Right] O2 Sat by Pulse 97 98 97 Oximetry O2 Sat by Pulse Oximetry [ Bilateral Throughout] 06/17/21 06/17/21 06/17/21 05:35 05:40 05:45 Temperature Pulse Rate 78 76 71 Respiratory Rate Blood Pressure Blood Pressure [Right] O2 Sat by Pulse 98 97 97 Oximetry O2 Sat by Pulse Oximetry [ Bilateral Throughout] 06/17/21 06/17/21 06/17/21 05:50 05:55 05:57 Temperature Pulse Rate 77 74 84 Respiratory Rate Blood Pressure Blood Pressure [Right] O2 Sat by Pulse 95 97 92 Oximetry O2 Sat by Pulse Oximetry [ Bilateral Throughout] 06/17/21 06/17/21 06/17/21 06:00 06:05 06:10 Temperature Pulse Rate 79 78 93 H Respiratory Rate Blood Pressure Blood Pressure [Right] O2 Sat by Pulse 98 97 98 Oximetry O2 Sat by Pulse Oximetry [ Bilateral Throughout] 06/17/21 06/17/21 06/17/21 06:23 06:28 06:33 Temperature Pulse Rate 91 H 91 H 85 Respiratory Rate Blood Pressure Blood Pressure [Right] O2 Sat by Pulse 99 99 97 Oximetry O2 Sat by Pulse Oximetry [ Bilateral Throughout] 06/17/21 06/17/21 06/17/21 06:38 06:43 06:48 Temperature Pulse Rate 76 91 H 94 H Respiratory Rate Blood Pressure Blood Pressure [Right] O2 Sat by Pulse 97 96 97 Oximetry O2 Sat by Pulse Oximetry [ Bilateral Throughout] 06/17/21 06/17/2121 06:53 06:58 07:03 Temperature Pulse Rate 86 75 75 Respiratory Rate Blood Pressure Blood Pressure [Right] O2 Sat by Pulse 98 97 98 Oximetry O2 Sat by Pulse Oximetry [ Bilateral Throughout] 06/17/21 06/17/21 06/17/21 07:08 07:13 07:18 Temperature Pulse Rate 78 81 82 Respiratory Rate Blood Pressure Blood Pressure [Right] O2 Sat by Pulse 97 100 99 Oximetry O2 Sat by Pulse Oximetry [ Bilateral Throughout] 06/17/21 06/17/21 06/17/21 07:23 07:25 07:28 Temperature Pulse Rate 74 79 Respiratory Rate Blood Pressure Blood Pressure [Right] O2 Sat by Pulse 98 97 Oximetry O2 Sat by Pulse 97 Oximetry [ Bilateral Throughout] 06/17/21 06/17/21 06/17/21 07:33 07:38 07:43 Temperature Pulse Rate 79 100 H 78 Respiratory Rate Blood Pressure Blood Pressure [Right] O2 Sat by Pulse 97 99 98 Oximetry O2 Sat by Pulse Oximetry [ Bilateral Throughout] 06/17/21 06/17/21 06/17/21 07:48 07:53 07:57 Temperature Pulse Rate 86 92 H 85 Respiratory Rate Blood Pressure Blood Pressure [Right] O2 Sat by Pulse 99 100 93 Oximetry O2 Sat by Pulse Oximetry [ Bilateral Throughout] 06/17/21 06/17/21 06/17/21 07:58 08:02 08:03 Temperature 97.4 F L Pulse Rate 86 90 87 Respiratory 16 Rate Blood Pressure 132/69 Blood Pressure 132/69 [Right] O2 Sat by Pulse 99 99 97 Oximetry O2 Sat by Pulse Oximetry [ Bilateral Throughout] 06/17/21 06/17/21 06/17/21 08:05 08:08 08:23 Temperature Pulse Rate 81 86 93 H Respiratory Rate Blood Pressure Blood Pressure [Right] O2 Sat by Pulse 94 99 99 Oximetry O2 Sat by Pulse Oximetry [ Bilateral Throughout] 06/17/21 06/17/21 06/17/21 08:28 08:33 08:38 Temperature Pulse Rate 80 83 81 Respiratory Rate Blood Pressure Blood Pressure [Right] O2 Sat by Pulse 96 99 100 Oximetry O2 Sat by Pulse Oximetry [ Bilateral Throughout] 06/17/21 06/17/21 06/17/21 08:42 08:43 08:48 Temperature Pulse Rate 81 93 H 85 Respiratory Rate Blood Pressure Blood Pressure [Right] O2 Sat by Pulse 94 100 99 Oximetry O2 Sat by Pulse Oximetry [ Bilateral Throughout] 06/17/21 06/17/21 06/17/21 08:51 08:53 08:57 Temperature Pulse Rate 86 82 66 Respiratory Rate Blood Pressure Blood Pressure [Right] O2 Sat by Pulse 93 97 92 Oximetry O2 Sat by Pulse Oximetry [ Bilateral Throughout] 06/17/21 06/17/21 06/17/21 08:58 09:03 09:07 Temperature Pulse Rate 76 75 92 H Respiratory Rate Blood Pressure Blood Pressure [Right] O2 Sat by Pulse 96 99 93 Oximetry O2 Sat by Pulse Oximetry [ Bilateral Throughout] 06/17/21 06/17/21 06/17/21 09:08 09:13 09:18 Temperature Pulse Rate 89 95 H 71 Respiratory Rate Blood Pressure Blood Pressure [Right] O2 Sat by Pulse 100 100 96 Oximetry O2 Sat by Pulse Oximetry [ Bilateral Throughout] 06/17/21 06/17/21 06/17/21 09:23 09:28 09:30 Temperature Pulse Rate 76 65 62 Respiratory Rate Blood Pressure Blood Pressure [Right] O2 Sat by Pulse 100 97 94 Oximetry O2 Sat by Pulse Oximetry [ Bilateral Throughout] 06/17/21 06/17/21 06/17/21 09:33 09:38 09:43 Temperature Pulse Rate 71 61 79 Respiratory Rate Blood Pressure Blood Pressure [Right] O2 Sat by Pulse 96 100 98 Oximetry O2 Sat by Pulse Oximetry [ Bilateral Throughout] 06/17/21 06/17/21 06/17/21 09:48 09:53 10:10 Temperature Pulse Rate 76 77 83 Respiratory Rate Blood Pressure Blood Pressure [Right] O2 Sat by Pulse 98 99 99 Oximetry O2 Sat by Pulse Oximetry [ Bilateral Throughout] 06/17/21 06/17/21 06/17/21 10:15 10:20 10:25 Temperature Pulse Rate 83 61 73 Respiratory Rate Blood Pressure Blood Pressure [Right] O2 Sat by Pulse 99 86 99 Oximetry O2 Sat by Pulse Oximetry [ Bilateral Throughout] 06/17/21 06/17/21 06/17/21 10:30 10:35 10:40 Temperature Pulse Rate 90 93 H 84 Respiratory Rate Blood Pressure Blood Pressure [Right] O2 Sat by Pulse 99 100 99 Oximetry O2 Sat by Pulse Oximetry [ Bilateral Throughout] 06/17/21 06/17/21 06/17/21 10:45 10:50 10:55 Temperature Pulse Rate 87 79 83 Respiratory Rate Blood Pressure Blood Pressure [Right] O2 Sat by Pulse 100 100 100 Oximetry O2 Sat by Pulse Oximetry [ Bilateral Throughout] 06/17/21 06/17/21 06/17/21 11:00 11:05 11:07 Temperature Pulse Rate 91 H 83 78 Respiratory Rate Blood Pressure 124/65 Blood Pressure [Right] O2 Sat by Pulse 100 100 Oximetry O2 Sat by Pulse Oximetry [ Bilateral Throughout] 06/17/21 06/17/21 06/17/21 11:09 11:10 11:11 Temperature Pulse Rate 88 85 84 Respiratory Rate Blood Pressure 139/81 139/76 Blood Pressure [Right] O2 Sat by Pulse 100 Oximetry O2 Sat by Pulse Oximetry [ Bilateral Throughout] 06/17/21 06/17/21 06/17/21 11:13 11:15 11:17 Temperature Pulse Rate 82 79 95 H Respiratory Rate Blood Pressure 125/65 116/56 110/56 Blood Pressure [Right] O2 Sat by Pulse 99 Oximetry O2 Sat by Pulse Oximetry [ Bilateral Throughout] 06/17/21 06/17/21 06/17/21 11:19 11:20 11:21 Temperature Pulse Rate 82 87 83 Respiratory Rate Blood Pressure 102/53 101/55 Blood Pressure [Right] O2 Sat by Pulse 100 Oximetry O2 Sat by Pulse Oximetry [ Bilateral Throughout] 06/17/21 06/17/21 06/17/21 11:23 11:25 11:27 Temperature Pulse Rate 76 74 71 Respiratory Rate Blood Pressure 105/55 110/53 116/56 Blood Pressure [Right] O2 Sat by Pulse 98 Oximetry O2 Sat by Pulse Oximetry [ Bilateral Throughout] 06/17/21 06/17/21 06/17/21 11:29 11:30 11:31 Temperature Pulse Rate 80 81 77 Respiratory Rate Blood Pressure 111/56 99/55 Blood Pressure [Right] O2 Sat by Pulse 98 Oximetry O2 Sat by Pulse Oximetry [ Bilateral Throughout] 06/17/21 06/17/21 06/17/21 11:33 11:35 11:37 Temperature Pulse Rate 72 71 76 Respiratory Rate Blood Pressure 104/56 97/54 98/50 Blood Pressure [Right] O2 Sat by Pulse 98 Oximetry O2 Sat by Pulse Oximetry [ Bilateral Throughout] 06/17/21 06/17/21 06/17/21 11:40 11:41 11:42 Temperature Pulse Rate 69 55 L 76 Respiratory Rate Blood Pressure 118/67 119/65 Blood Pressure [Right] O2 Sat by Pulse 98 94 Oximetry O2 Sat by Pulse Oximetry [ Bilateral Throughout] 06/17/21 06/17/21 06/17/21 11:43 11:45 11:47 Temperature Pulse Rate 65 66 63 Respiratory Rate Blood Pressure 127/74 114/61 117/64 Blood Pressure [Right] O2 Sat by Pulse 96 Oximetry O2 Sat by Pulse Oximetry [ Bilateral Throughout] 06/17/21 06/17/21 06/17/21 11:48 11:49 11:50 Temperature Pulse Rate 79 72 65 Respiratory Rate Blood Pressure 127/66 Blood Pressure [Right] O2 Sat by Pulse 94 98 Oximetry O2 Sat by Pulse Oximetry [ Bilateral Throughout] 06/17/21 06/17/21 06/17/21 11:51 11:53 12:00 Temperature Pulse Rate 68 71 69 Respiratory Rate Blood Pressure 126/72 130/77 Blood Pressure [Right] O2 Sat by Pulse 98 Oximetry O2 Sat by Pulse Oximetry [ Bilateral Throughout] 06/17/21 06/17/21 06/17/21 12:01 12:03 12:05 Temperature Pulse Rate 74 70 61 Respiratory Rate Blood Pressure 128/80 130/81 136/83 Blood Pressure [Right] O2 Sat by Pulse 98 Oximetry O2 Sat by Pulse Oximetry [ Bilateral Throughout] 06/17/21 06/17/21 06/17/21 12:07 12:10 12:15 Temperature Pulse Rate 65 74 72 Respiratory Rate Blood Pressure Blood Pressure [Right] O2 Sat by Pulse 94 95 96 Oximetry O2 Sat by Pulse Oximetry [ Bilateral Throughout] 06/17/21 06/17/21 06/17/21 12:20 12:21 12:22 Temperature Pulse Rate 65 73 67 Respiratory Rate Blood Pressure 138/74 Blood Pressure [Right] O2 Sat by Pulse 96 92 Oximetry O2 Sat by Pulse Oximetry [ Bilateral Throughout] 06/17/21 06/17/21 06/17/21 12:25 12:26 12:30 Temperature Pulse Rate 65 64 84 Respiratory Rate Blood Pressure Blood Pressure [Right] O2 Sat by Pulse 95 93 95 Oximetry O2 Sat by Pulse Oximetry [ Bilateral Throughout] 06/17/21 06/17/21 06/17/21 12:32 12:35 12:37 Temperature Pulse Rate 66 81 83 Respiratory Rate Blood Pressure 129/70 Blood Pressure [Right] O2 Sat by Pulse 93 99 Oximetry O2 Sat by Pulse Oximetry [ Bilateral Throughout] 06/17/21 06/17/21 06/17/21 12:40 12:41 12:45 Temperature Pulse Rate 67 67 75 Respiratory Rate Blood Pressure Blood Pressure [Right] O2 Sat by Pulse 97 91 97 Oximetry O2 Sat by Pulse Oximetry [ Bilateral Throughout] 06/17/21 06/17/21 06/17/21 12:47 12:50 12:52 Temperature Pulse Rate 79 69 80 Respiratory Rate Blood Pressure 117/64 Blood Pressure [Right] O2 Sat by Pulse 94 98 Oximetry O2 Sat by Pulse Oximetry [ Bilateral Throughout] 06/17/21 06/17/21 06/17/21 12:55 13:00 13:05 Temperature Pulse Rate 71 74 78 Respiratory Rate Blood Pressure Blood Pressure [Right] O2 Sat by Pulse 97 97 99 Oximetry O2 Sat by Pulse Oximetry [ Bilateral Throughout] 06/17/21 06/17/21 06/17/21 13:09 13:10 13:15 Temperature Pulse Rate 96 H 111 H 83 Respiratory Rate Blood Pressure 125/68 Blood Pressure [Right] O2 Sat by Pulse 99 99 Oximetry O2 Sat by Pulse Oximetry [ Bilateral Throughout] 06/17/21 06/17/21 06/17/21 13:20 13:25 13:30 Temperature Pulse Rate 90 76 87 Respiratory Rate Blood Pressure Blood Pressure [Right] O2 Sat by Pulse 99 99 99 Oximetry O2 Sat by Pulse Oximetry [ Bilateral Throughout] 06/17/21 06/17/21 06/17/21 13:35 13:40 13:45 Temperature Pulse Rate 86 79 81 Respiratory Rate Blood Pressure 121/67 Blood Pressure [Right] O2 Sat by Pulse 99 98 99 Oximetry O2 Sat by Pulse Oximetry [ Bilateral Throughout] 06/17/21 06/17/21 06/17/21 13:50 13:55 14:00 Temperature Pulse Rate 105 H 89 79 Respiratory Rate Blood Pressure Blood Pressure [Right] O2 Sat by Pulse 98 99 98 Oximetry O2 Sat by Pulse Oximetry [ Bilateral Throughout] 06/17/21 06/17/21 06/17/21 14:05 14:09 14:10 Temperature Pulse Rate 79 81 85 Respiratory Rate Blood Pressure 122/69 Blood Pressure [Right] O2 Sat by Pulse 99 99 Oximetry O2 Sat by Pulse Oximetry [ Bilateral Throughout] 06/17/21 06/17/21 06/17/21 14:15 14:20 14:25 Temperature Pulse Rate 80 70 80 Respiratory Rate Blood Pressure Blood Pressure [Right] O2 Sat by Pulse 100 100 100 Oximetry O2 Sat by Pulse Oximetry [ Bilateral Throughout] 06/17/21 06/17/21 06/17/21 14:30 14:35 14:40 Temperature Pulse Rate 74 70 72 Respiratory Rate Blood Pressure 108/56 Blood Pressure [Right] O2 Sat by Pulse 100 100 100 Oximetry O2 Sat by Pulse Oximetry [ Bilateral Throughout] 06/17/21 06/17/21 06/17/21 14:45 14:50 14:55 Temperature Pulse Rate 74 71 69 Respiratory Rate Blood Pressure Blood Pressure [Right] O2 Sat by Pulse 100 100 100 Oximetry O2 Sat by Pulse Oximetry [ Bilateral Throughout] 06/17/21 06/17/21 06/17/21 15:00 15:05 15:10 Temperature Pulse Rate 69 70 68 Respiratory Rate Blood Pressure 112/54 Blood Pressure [Right] O2 Sat by Pulse 100 100 100 Oximetry O2 Sat by Pulse Oximetry [ Bilateral Throughout] 06/17/21 06/17/21 06/17/21 15:15 15:20 15:25 Temperature Pulse Rate 72 69 69 Respiratory Rate Blood Pressure Blood Pressure [Right] O2 Sat by Pulse 100 100 100 Oximetry O2 Sat by Pulse Oximetry [ Bilateral Throughout] 06/17/21 06/17/21 15:30 15:35 Temperature Pulse Rate 76 75 Respiratory Rate Blood Pressure Blood Pressure [Right] O2 Sat by Pulse 100 100 Oximetry O2 Sat by Pulse Oximetry [ Bilateral Throughout] - Exam Breasts: normal Cardiovascular: Regular rate Lungs: Clear to auscultation, Normal air movement Abdomen: Present: normal appearance, soft Vulva: both: normal Uterus: Present: normal FHR: category 2 Uterine Contraction Monitor Mode: Internal Cervical Dilatation: 6.5 Cervical Effacement Percentage: 90 station: -1 Uterine Contraction Frequency (min): 2-3 Uterine Contraction Duration: 60 Uterine Contraction Pattern: Regular Uterine Tone Measurement Phase: Contraction Uterine Contraction Intensity: Strong/Firm Extremities: normal Deep Tendon Reflex Grade: Normal +2 - Labs Labs: Abnormal Labs 06/15/21 21:41 WBC 12.9 H RBC 3.60 L Hgb 9.3 L Hct 28.5 L MCH 26 L RDW 17.2 H
--- NOTE | 2021-06-17 17:14 | Progress Note ---
Assessment and Plan no change in SVE, Caput present. tracing continues to be cat 2, variables continue with every ctx, suspected CPD. Dr. Weber updated, will proceed with c/s. pre-op orders in EMR. Anesthesia aware. - Patient Problems (1) 40 weeks gestation of Current Visit: Yes Status: Acute (2) BMI 45.0-49.9, adult Current Visit: Yes Status: Acute (3) GBS (group B Streptococcus carrier), +RV culture, currently Current Visit: Yes Status: Acute Subjective - Subjective Date of service: 06/17/21 Principal diagnosis: IUP @ 41w1d, IOL d/t postdates and AMFM recommendation Interval history: EDC Confirmation: 06/09/2021 Past History : 1 Term Births: 0 Premature Births: 0 Living Children: 0 Para: 0 Mult. Births: 0 Prev : 0 Aborta: 0 Elect. Ab: 0 Spont. Ab: 0 Ectopics: 0 Past Medical History: Reviewed history and no changes required: Negative Past Medical History Past Surgical History: Reviewed history and no changes required: negative Past Medical History Anesthesia Complications: negative Anemia: negative Autoimmune Disorder: negative Bleeding Disorder: negative Blood Transfusions: negative Breast Disease: negative Diabetes: negative Heart Disease: negative Hypertension: negative Hepatitis/Liver Disease: negative Kidney Disease/UTI: negative Neurologic/Epilepsy/Migraines: negative Phlebitis/Varicosities: negative Psychiatric: negative Pulmonary Disease/Asthma: negative Thyroid Disease: negative Hospitalizations: negative Surgery (Non-waiter/waitress counter): negative Abnormal PAP: negative MARY Exposure: negative Infertility: negative Uterine Anomaly: negative Uterine Surgery (not C/S): negative Other Gynecologic Problems: negative Family Hx: DM: PGM CA: Breast Paternal Aunt, Mother ovarian Infection History Hx of STD: none HIV Risk Eval: low risk Hepatitis B Risk Eval: low risk Personal hx. of genital herpes: no Partner hx. of genital herpes: no Rash, Viral, or Febrile illness since last LMP? no Varicella/Chicken Pox Status: No TB Risk: no Genetic History Congenital Heart Defect: Mom: no Dad: no Kyra Disease: Mom: no Dad: no Thalassemia Mom: no Dad: no Neural Tube Defect Mom: no Dad: no Down's Syndrome Mom: no Dad: no Jay-Sachs Mom: no Dad: no Sickle Cell Disease/Trait Mom: no Dad: no Hemophilia Mom: no Dad: no Muscular Dystrophy Mom: no Dad: no Cystic Fibrosis Mom: no Dad: no [place] Chorea Mom: no Dad: no Mental Retardation Mom: no Dad: no Fragile X Mom: no Dad: no Other Genetic/Chromosomal Disorder Mom: no Dad: no Child w/other defect Mom: no Dad: no Enviromental Exposures Xray Exposure: no Medication, drug, or alcohol use since LMP: no Chemical/Other Exposure: no Exposure to Cat Liter: no Hx of Parvovirus (Fifth Disease): no Occupational Exposure to Children: none Active Medications (reviewed today): None Current Allergies (reviewed today): No known allergies Objective - Vital Signs Vital Signs: Vital Signs - 12hr 06/17/21 06/17/21 06/17/21 05:15 05:20 05:25 Temperature Pulse Rate 71 82 78 Respiratory Rate Blood Pressure Blood Pressure [Right] O2 Sat by Pulse 95 97 98 Oximetry O2 Sat by Pulse Oximetry [ Bilateral Throughout] 06/17/21 06/17/21 06/17/21 05:30 05:35 05:40 Temperature Pulse Rate 72 78 76 Respiratory Rate Blood Pressure Blood Pressure [Right] O2 Sat by Pulse 97 98 97 Oximetry O2 Sat by Pulse Oximetry [ Bilateral Throughout] 06/17/21 06/17/21 06/17/21 05:45 05:50 05:55 Temperature Pulse Rate 71 77 74 Respiratory Rate Blood Pressure Blood Pressure [Right] O2 Sat by Pulse 97 95 97 Oximetry O2 Sat by Pulse Oximetry [ Bilateral Throughout] 06/17/21 06/17/21 06/17/21 05:57 06:00 06:05 Temperature Pulse Rate 84 79 78 Respiratory Rate Blood Pressure Blood Pressure [Right] O2 Sat by Pulse 92 98 97 Oximetry O2 Sat by Pulse Oximetry [ Bilateral Throughout] 06/17/21 06/17/21 06/17/21 06:10 06:23 06:28 Temperature Pulse Rate 93 H 91 H 91 H Respiratory Rate Blood Pressure Blood Pressure [Right] O2 Sat by Pulse 98 99 99 Oximetry O2 Sat by Pulse Oximetry [ Bilateral Throughout] 06/17/21 06/17/21 06/17/21 06:33 06:38 06:43 Temperature Pulse Rate 85 76 91 H Respiratory Rate Blood Pressure Blood Pressure [Right] O2 Sat by Pulse 97 97 96 Oximetry O2 Sat by Pulse Oximetry [ Bilateral Throughout] 06/17/21 06/17/21 06/17/21 06:48 06:53 06:58 Temperature Pulse Rate 94 H 86 75 Respiratory Rate Blood Pressure Blood Pressure [Right] O2 Sat by Pulse 97 98 97 Oximetry O2 Sat by Pulse Oximetry [ Bilateral Throughout] 06/17/21 06/17/21 06/17/21 07:03 07:08 07:13 Temperature Pulse Rate 75 78 81 Respiratory Rate Blood Pressure Blood Pressure [Right] O2 Sat by Pulse 98 97 100 Oximetry O2 Sat by Pulse Oximetry [ Bilateral Throughout] 06/17/21 06/17/21 06/17/21 07:18 07:23 07:25 Temperature Pulse Rate 82 74 Respiratory Rate Blood Pressure Blood Pressure [Right] O2 Sat by Pulse 99 98 Oximetry O2 Sat by Pulse 97 Oximetry [ Bilateral Throughout] 06/17/21 06/17/21 06/17/21 07:28 07:33 07:38 Temperature Pulse Rate 79 79 100 H Respiratory Rate Blood Pressure Blood Pressure [Right] O2 Sat by Pulse 97 97 99 Oximetry O2 Sat by Pulse Oximetry [ Bilateral Throughout] 06/17/21 06/17/21 06/17/21 07:43 07:48 07:53 Temperature Pulse Rate 78 86 92 H Respiratory Rate Blood Pressure Blood Pressure [Right] O2 Sat by Pulse 98 99 100 Oximetry O2 Sat by Pulse Oximetry [ Bilateral Throughout] 06/17/21 06/17/21 06/17/21 07:57 07:58 08:02 Temperature 97.4 F L Pulse Rate 85 86 90 Respiratory 16 Rate Blood Pressure Blood Pressure 132/69 [Right] O2 Sat by Pulse 93 99 99 Oximetry O2 Sat by Pulse Oximetry [ Bilateral Throughout] 06/17/21 06/17/21 06/17/21 08:03 08:05 08:08 Temperature Pulse Rate 87 81 86 Respiratory Rate Blood Pressure 132/69 Blood Pressure [Right] O2 Sat by Pulse 97 94 99 Oximetry O2 Sat by Pulse Oximetry [ Bilateral Throughout] 06/17/21 06/17/21 06/17/21 08:23 08:28 08:33 Temperature Pulse Rate 93 H 80 83 Respiratory Rate Blood Pressure Blood Pressure [Right] O2 Sat by Pulse 99 96 99 Oximetry O2 Sat by Pulse Oximetry [ Bilateral Throughout] 06/17/21 06/17/21 06/17/21 08:38 08:42 08:43 Temperature Pulse Rate 81 81 93 H Respiratory Rate Blood Pressure Blood Pressure [Right] O2 Sat by Pulse 100 94 100 Oximetry O2 Sat by Pulse Oximetry [ Bilateral Throughout] 06/17/21 06/17/21 06/17/21 08:48 08:51 08:53 Temperature Pulse Rate 85 86 82 Respiratory Rate Blood Pressure Blood Pressure [Right] O2 Sat by Pulse 99 93 97 Oximetry O2 Sat by Pulse Oximetry [ Bilateral Throughout] 06/17/21 06/17/21 06/17/21 08:57 08:58 09:03 Temperature Pulse Rate 66 76 75 Respiratory Rate Blood Pressure Blood Pressure [Right] O2 Sat by Pulse 92 96 99 Oximetry O2 Sat by Pulse Oximetry [ Bilateral Throughout] 06/17/21 06/17/21 06/17/21 09:07 09:08 09:13 Temperature Pulse Rate 92 H 89 95 H Respiratory Rate Blood Pressure Blood Pressure [Right] O2 Sat by Pulse 93 100 100 Oximetry O2 Sat by Pulse Oximetry [ Bilateral Throughout] 06/17/21 06/17/21 06/17/21 09:18 09:23 09:28 Temperature Pulse Rate 71 76 65 Respiratory Rate Blood Pressure Blood Pressure [Right] O2 Sat by Pulse 96 100 97 Oximetry O2 Sat by Pulse Oximetry [ Bilateral Throughout] 06/17/21 06/17/21 06/17/21 09:30 09:33 09:38 Temperature Pulse Rate 62 71 61 Respiratory Rate Blood Pressure Blood Pressure [Right] O2 Sat by Pulse 94 96 100 Oximetry O2 Sat by Pulse Oximetry [ Bilateral Throughout] 06/17/21 06/17/21 06/17/21 09:43 09:48 09:53 Temperature Pulse Rate 79 76 77 Respiratory Rate Blood Pressure Blood Pressure [Right] O2 Sat by Pulse 98 98 99 Oximetry O2 Sat by Pulse Oximetry [ Bilateral Throughout] 06/17/21 06/17/21 06/17/21 10:10 10:15 10:20 Temperature Pulse Rate 83 83 61 Respiratory Rate Blood Pressure Blood Pressure [Right] O2 Sat by Pulse 99 99 86 Oximetry O2 Sat by Pulse Oximetry [ Bilateral Throughout] 06/17/21 06/17/21 06/17/21 10:25 10:30 10:35 Temperature Pulse Rate 73 90 93 H Respiratory Rate Blood Pressure Blood Pressure [Right] O2 Sat by Pulse 99 99 100 Oximetry O2 Sat by Pulse Oximetry [ Bilateral Throughout] 06/17/21 06/17/21 06/17/21 10:40 10:45 10:50 Temperature Pulse Rate 84 87 79 Respiratory Rate Blood Pressure Blood Pressure [Right] O2 Sat by Pulse 99 100 100 Oximetry O2 Sat by Pulse Oximetry [ Bilateral Throughout] 06/17/21 06/17/21 06/17/21 10:55 11:00 11:05 Temperature Pulse Rate 83 91 H 83 Respiratory Rate Blood Pressure Blood Pressure [Right] O2 Sat by Pulse 100 100 100 Oximetry O2 Sat by Pulse Oximetry [ Bilateral Throughout] 06/17/21 06/17/21 06/17/21 11:07 11:09 11:10 Temperature Pulse Rate 78 88 85 Respiratory Rate Blood Pressure 124/65 139/81 Blood Pressure [Right] O2 Sat by Pulse 100 Oximetry O2 Sat by Pulse Oximetry [ Bilateral Throughout] 06/17/21 06/17/21 06/17/21 11:11 11:13 11:15 Temperature Pulse Rate 84 82 79 Respiratory Rate Blood Pressure 139/76 125/65 116/56 Blood Pressure [Right] O2 Sat by Pulse 99 Oximetry O2 Sat by Pulse Oximetry [ Bilateral Throughout] 06/17/21 06/17/21 06/17/21 11:17 11:19 11:20 Temperature Pulse Rate 95 H 82 87 Respiratory Rate Blood Pressure 110/56 102/53 Blood Pressure [Right] O2 Sat by Pulse 100 Oximetry O2 Sat by Pulse Oximetry [ Bilateral Throughout] 06/17/21 06/17/21 06/17/21 11:21 11:23 11:25 Temperature Pulse Rate 83 76 74 Respiratory Rate Blood Pressure 101/55 105/55 110/53 Blood Pressure [Right] O2 Sat by Pulse 98 Oximetry O2 Sat by Pulse Oximetry [ Bilateral Throughout] 06/17/21 06/17/21 06/17/21 11:27 11:29 11:30 Temperature Pulse Rate 71 80 81 Respiratory Rate Blood Pressure 116/56 111/56 Blood Pressure [Right] O2 Sat by Pulse 98 Oximetry O2 Sat by Pulse Oximetry [ Bilateral Throughout] 06/17/21 06/17/21 06/17/21 11:31 11:33 11:35 Temperature Pulse Rate 77 72 71 Respiratory Rate Blood Pressure 99/55 104/56 97/54 Blood Pressure [Right] O2 Sat by Pulse 98 Oximetry O2 Sat by Pulse Oximetry [ Bilateral Throughout] 06/17/21 06/17/21 06/17/21 11:37 11:40 11:41 Temperature Pulse Rate 76 69 55 L Respiratory Rate Blood Pressure 98/50 118/67 119/65 Blood Pressure [Right] O2 Sat by Pulse 98 Oximetry O2 Sat by Pulse Oximetry [ Bilateral Throughout] 06/17/21 06/17/21 06/17/21 11:42 11:43 11:45 Temperature Pulse Rate 76 65 66 Respiratory Rate Blood Pressure 127/74 114/61 Blood Pressure [Right] O2 Sat by Pulse 94 96 Oximetry O2 Sat by Pulse Oximetry [ Bilateral Throughout] 06/17/21 06/17/21 06/17/21 11:47 11:48 11:49 Temperature Pulse Rate 63 79 72 Respiratory Rate Blood Pressure 117/64 127/66 Blood Pressure [Right] O2 Sat by Pulse 94 Oximetry O2 Sat by Pulse Oximetry [ Bilateral Throughout] 06/17/21 06/17/21 06/17/21 11:50 11:51 11:53 Temperature Pulse Rate 65 68 71 Respiratory Rate Blood Pressure 126/72 130/77 Blood Pressure [Right] O2 Sat by Pulse 98 Oximetry O2 Sat by Pulse Oximetry [ Bilateral Throughout] 06/17/21 06/17/21 06/17/21 12:00 12:01 12:03 Temperature Pulse Rate 69 74 70 Respiratory Rate Blood Pressure 128/80 130/81 Blood Pressure [Right] O2 Sat by Pulse 98 Oximetry O2 Sat by Pulse Oximetry [ Bilateral Throughout] 06/17/21 06/17/21 06/17/21 12:05 12:07 12:10 Temperature Pulse Rate 61 65 74 Respiratory Rate Blood Pressure 136/83 Blood Pressure [Right] O2 Sat by Pulse 98 94 95 Oximetry O2 Sat by Pulse Oximetry [ Bilateral Throughout] 06/17/21 06/17/21 06/17/21 12:15 12:20 12:21 Temperature Pulse Rate 72 65 73 Respiratory Rate Blood Pressure Blood Pressure [Right] O2 Sat by Pulse 96 96 92 Oximetry O2 Sat by Pulse Oximetry [ Bilateral Throughout] 06/17/21 06/17/21 06/17/21 12:22 12:25 12:26 Temperature Pulse Rate 67 65 64 Respiratory Rate Blood Pressure 138/74 Blood Pressure [Right] O2 Sat by Pulse 95 93 Oximetry O2 Sat by Pulse Oximetry [ Bilateral Throughout] 06/17/21 06/17/21 06/17/21 12:30 12:32 12:35 Temperature Pulse Rate 84 66 81 Respiratory Rate Blood Pressure Blood Pressure [Right] O2 Sat by Pulse 95 93 99 Oximetry O2 Sat by Pulse Oximetry [ Bilateral Throughout] 06/17/21 06/17/21 06/17/21 12:37 12:40 12:41 Temperature Pulse Rate 83 67 67 Respiratory Rate Blood Pressure 129/70 Blood Pressure [Right] O2 Sat by Pulse 97 91 Oximetry O2 Sat by Pulse Oximetry [ Bilateral Throughout] 06/17/21 06/17/21 06/17/21 12:45 12:47 12:50 Temperature Pulse Rate 75 79 69 Respiratory Rate Blood Pressure Blood Pressure [Right] O2 Sat by Pulse 97 94 98 Oximetry O2 Sat by Pulse Oximetry [ Bilateral Throughout] 06/17/21 06/17/21 06/17/21 12:52 12:55 13:00 Temperature Pulse Rate 80 71 74 Respiratory Rate Blood Pressure 117/64 Blood Pressure [Right] O2 Sat by Pulse 97 97 Oximetry O2 Sat by Pulse Oximetry [ Bilateral Throughout] 06/17/21 06/17/21 06/17/21 13:05 13:09 13:10 Temperature Pulse Rate 78 96 H 111 H Respiratory Rate Blood Pressure 125/68 Blood Pressure [Right] O2 Sat by Pulse 99 99 Oximetry O2 Sat by Pulse Oximetry [ Bilateral Throughout] 06/17/21 06/17/21 06/17/21 13:15 13:20 13:25 Temperature Pulse Rate 83 90 76 Respiratory Rate Blood Pressure Blood Pressure [Right] O2 Sat by Pulse 99 99 99 Oximetry O2 Sat by Pulse Oximetry [ Bilateral Throughout] 06/17/21 06/17/21 06/17/21 13:30 13:35 13:40 Temperature Pulse Rate 87 86 79 Respiratory Rate Blood Pressure 121/67 Blood Pressure [Right] O2 Sat by Pulse 99 99 98 Oximetry O2 Sat by Pulse Oximetry [ Bilateral Throughout] 06/17/21 06/17/21 06/17/21 13:45 13:50 13:55 Temperature Pulse Rate 81 105 H 89 Respiratory Rate Blood Pressure Blood Pressure [Right] O2 Sat by Pulse 99 98 99 Oximetry O2 Sat by Pulse Oximetry [ Bilateral Throughout] 06/17/21 06/17/21 06/17/21 14:00 14:05 14:09 Temperature Pulse Rate 79 79 81 Respiratory Rate Blood Pressure 122/69 Blood Pressure [Right] O2 Sat by Pulse 98 99 Oximetry O2 Sat by Pulse Oximetry [ Bilateral Throughout] 06/17/21 06/17/21 06/17/21 14:10 14:15 14:20 Temperature Pulse Rate 85 80 70 Respiratory Rate Blood Pressure Blood Pressure [Right] O2 Sat by Pulse 99 100 100 Oximetry O2 Sat by Pulse Oximetry [ Bilateral Throughout] 06/17/21 06/17/21 06/17/21 14:25 14:30 14:35 Temperature Pulse Rate 80 74 70 Respiratory Rate Blood Pressure Blood Pressure [Right] O2 Sat by Pulse 100 100 100 Oximetry O2 Sat by Pulse Oximetry [ Bilateral Throughout] 06/17/21 06/17/21 06/17/21 14:40 14:45 14:50 Temperature Pulse Rate 72 74 71 Respiratory Rate Blood Pressure 108/56 Blood Pressure [Right] O2 Sat by Pulse 100 100 100 Oximetry O2 Sat by Pulse Oximetry [ Bilateral Throughout] 06/17/21 06/17/21 06/17/21 14:55 15:00 15:05 Temperature Pulse Rate 69 69 70 Respiratory Rate Blood Pressure Blood Pressure [Right] O2 Sat by Pulse 100 100 100 Oximetry O2 Sat by Pulse Oximetry [ Bilateral Throughout] 06/17/21 06/17/21 06/17/21 15:10 15:15 15:20 Temperature Pulse Rate 68 72 69 Respiratory Rate Blood Pressure 112/54 Blood Pressure [Right] O2 Sat by Pulse 100 100 100 Oximetry O2 Sat by Pulse Oximetry [ Bilateral Throughout] 06/17/21 06/17/21 06/17/21 15:25 15:30 15:35 Temperature Pulse Rate 69 76 75 Respiratory Rate Blood Pressure Blood Pressure [Right] O2 Sat by Pulse 100 100 100 Oximetry O2 Sat by Pulse Oximetry [ Bilateral Throughout] 06/17/21 06/17/21 06/17/21 15:40 15:45 15:50 Temperature Pulse Rate 77 81 79 Respiratory Rate Blood Pressure 119/67 Blood Pressure [Right] O2 Sat by Pulse 100 100 100 Oximetry O2 Sat by Pulse Oximetry [ Bilateral Throughout] 06/17/21 06/17/21 06/17/21 15:55 16:00 16:05 Temperature Pulse Rate 76 81 76 Respiratory Rate Blood Pressure Blood Pressure [Right] O2 Sat by Pulse 99 100 100 Oximetry O2 Sat by Pulse Oximetry [ Bilateral Throughout] 06/17/21 06/17/21 06/17/21 16:10 16:15 16:20 Temperature Pulse Rate 79 80 79 Respiratory Rate Blood Pressure 123/64 Blood Pressure [Right] O2 Sat by Pulse 100 100 100 Oximetry O2 Sat by Pulse Oximetry [ Bilateral Throughout] 06/17/21 06/17/21 06/17/21 16:25 16:30 16:35 Temperature Pulse Rate 79 82 80 Respiratory Rate Blood Pressure Blood Pressure [Right] O2 Sat by Pulse 100 100 100 Oximetry O2 Sat by Pulse Oximetry [ Bilateral Throughout] 06/17/21 06/17/21 06/17/21 16:40 16:45 16:50 Temperature Pulse Rate 83 74 79 Respiratory Rate Blood Pressure 122/61 Blood Pressure [Right] O2 Sat by Pulse 100 100 100 Oximetry O2 Sat by Pulse Oximetry [ Bilateral Throughout] 06/17/21 06/17/21 06/17/21 16:55 17:00 17:05 Temperature Pulse Rate 79 74 105 H Respiratory Rate Blood Pressure Blood Pressure [Right] O2 Sat by Pulse 100 99 98 Oximetry O2 Sat by Pulse Oximetry [ Bilateral Throughout] 06/17/21 06/17/21 17:10 17:11 Temperature Pulse Rate 98 H 101 H Respiratory Rate Blood Pressure 111/71 Blood Pressure [Right] O2 Sat by Pulse 97 Oximetry O2 Sat by Pulse Oximetry [ Bilateral Throughout] - Exam Uterine Contraction Monitor Mode: Internal Cervical Dilatation: 6.5 Cervical Effacement Percentage: 90 station: -1 - Labs Labs: Abnormal Labs 06/15/21 21:41 WBC 12.9 H RBC 3.60 L Hgb 9.3 L Hct 28.5 L MCH 26 L RDW 17.2 H
[2021-06-17] MEDS ORDERED: LIDOCAINE 2%/EPINEPHRINE 1:200,000 VIAL (20 ML) INFILTRATI ONE (17:38)
--- NOTE | 2021-06-17 17:48 | Event Note ---
Date: 06/17/21 Indication for section discussed. Patient informed the risks of the surgery include bleeding possibly bleeding heavy enough to require blood transfusion, infection possible damage to bowel bladder ureter. All questions answered. Patient agrees to proceed
[2021-06-17] MEDS ORDERED: ceFAZolin/Water 2 GM/20 ML 2 GM/20 ML SYRINGE IV NR (18:00)
[2021-06-17] MEDS ORDERED: ONDANSETRON 4 MG/2 ML INJ ONE ×2 (18:06)
[2021-06-17] MEDS ORDERED: METOCLOPRAMIDE 10 MG/2 ML INJ IV ONE (18:11)
[2021-06-17] MEDS ORDERED: BICITRA ORAL LIQD 30ML PO ONE (18:11)
[2021-06-17] MEDS ORDERED: FAMOTIDINE 20 MG/2 ML INJ IV ONE (18:11)
[2021-06-17] MEDS ORDERED: SODIUM CHLORIDE 0.9% IRR 1,500 ML BOTTLE IR ONE (18:13)
[2021-06-17] MEDS ORDERED: WATER FOR IRRIG STERILE 1,500 ML BOTTLE IR ONE (18:14)
[2021-06-17] MEDS ORDERED: BUPIVACAINE/PF (0.25%) 2.5 MG/ML 30 ML VIAL INFILTRATI ONE ×2 (18:29)
[2021-06-17] MEDS ORDERED: KETOROLAC 30 MG/1 ML INJ ONE (18:29)
[2021-06-17] MEDS ORDERED: dexAMETHasone 20 MG/5 ML VIAL ONE (18:31)
--- NOTE | 2021-06-17 19:01 | Operative Report ---
Operative Report Operative Report: Date of procedure: June 17, 2021 Pre-operative diagnosis: Intrauterine at 41 weeks with morbid obesity, failed induction, arrest of dilatation and descent Post-operative diagnosis: Same Procedure name(s): Primary low transverse section Surgeon: Anupam Weber MD Retail Financial Analyst: Leeann Can, certified nurse foreign clerk Anesthesia: Epidural EBL: QBL: 441 cc Complications: None Findings: Normal uterus tubes and ovaries bilaterally. Male weight 7 pounds 10 ounces. Apgars 8 at 1 minute and 9 at 5 minutes Specimen(s): None Procedure: The patient was brought to the operating room. Her epidural was dosed was placed without any complications. She was then placed in left lateral tilt. Prepped and draped in the usual sterile manner. After testing for adequate anesthesia level, a Pfannenstiel incision was made. This incision was taken down to the fascia. The fascia was then nicked in the midline. This incision was extended out laterally with Albert scissors. The fascia was then sharply and bluntly from the underlying rectus muscles. The rectus muscles were bluntly and sharply . The peritoneum was then entered with the nail assembly machine operator's fingers. This incision was spread vertically with care not to damage the bladder below. The Joseph self-retaining tractor was then placed without any difficulty. The bladder flap was then formed sharply and bluntly with Metzenbaum scissors. A transverse incision was made in lower uterine segment. This incision was extended laterally with the operators fingers. The amniotic sac was then entered bluntly with the nail assembly machine operator's fingers. The was delivered from the vertex position. Bulb suction on the mother's abdomen. Cord was double clamped and cut. The was then passed to the nursery personnel who were in attendance. The above scores were given by the nursery personnel. The placenta was then bluntly removed. The uterus was then externalized and wiped clean the remaining products. The uterine incision was closed in layers. The first incision was closed in a locking manner using 0 Vicryl. This was followed by imbricating stitch also with 0 Vicryl. This closure was hemostatic. The bladder flap was copiously irrigated and found to be hemostatic. The pelvis was copiously irrigated and found to be hemostatic. The uterus was then placed back to the patient's abdomen. The retractors were removed. The rectus muscles were inspected and found to be hemostatic. The fascia was then closed in a running manner using 0 Vicryl. This incision was hemostatic irrigation Bovie. The skin was reapproximated with 4-0 Vicryl subcuticularly. The patient tolerated procedure well. Her urine was clear. The infant was admitted to the well baby nursery. The patient was accompanied to recovery room in good condition. Instrument count correct times 3.
--- NOTE | 2021-06-17 19:20 | Anesthesia Day of Surgery ---
Anesthesia Day of Surgery - Day of Surgery Patient Examined: Yes Patient H&P Reviewed: Yes Patient is NPO: Yes Beta Blockers: No Cardiac Clearance: No Pulmonary Clearance: No Max's Test: Negative
--- NOTE | 2021-06-17 19:21 | Progress Note ---
Regional Anesthesia Block - Regional Anesthesia Block Start Time: 19:14 Stop Time: 19:17 Performed By:: GABRIELLE MORAN Procedure: Patient consented for TAP block for post surgical pain management. Patient identified, monitors placed, and time out performed. TAP identified bilaterally via ultrasound. Skin prepped bilaterally with [chlorhexidine] and [22g stimuplex] needle advanced to the TAP. [Marcaine 0.25% 35ml] injected under ultrasound guidance on the [left] side. [Marcaine 0.25% 35ml] injected under ultrasound guidance on the [right] side. Negative aspiration every 5mL, No change in heart rate or rhythm. Patient tolerated the procedure well. No apparent complications seen.
[2021-06-17] MEDS ORDERED: NALOXONE 0.4 MG/1 ML INJ IV PRN ×2 (19:22→22:51)
[2021-06-17] MEDS ORDERED: HYDROmorphone 1 MG/1 ML INJ IV PRN (19:22)
[2021-06-17] MEDS ORDERED: ONDANSETRON 4 MG/2 ML INJ IV PRN ×2 (19:22→22:51)
[2021-06-17] MEDS ORDERED: MORPHINE 4 MG/1 ML INJ IV PRN (19:22)
[2021-06-17] MEDS ORDERED: SIMETHICONE 80 MG CHEW TAB PO PRN (22:51)
[2021-06-17] MEDS ORDERED: D5W/LACTATED RINGERS 1,000 ML IV SCH (22:51)
[2021-06-17] MEDS ORDERED: HYDROcodone/ACETAMINOPHEN 5-325 MG TAB PO PRN (22:51)
[2021-06-17] MEDS ORDERED: LANOLIN/ZINC/DIMETHICONE (LANSINOH) 7 GM TP PRN (22:51)
[2021-06-17] MEDS ORDERED: OXYTOCIN DRIP 30 UNITS/500 ML BAG IV SCH (22:51)
[2021-06-17] MEDS ORDERED: WITCH HAZEL/ GLYCERIN PAD TP PRN (22:51)
[2021-06-17] MEDS ORDERED: MAGNESIUM HYDROXIDE (MOM) ORAL LIQD UDC PO PRN (22:51)
[2021-06-18] MEDS: KETOROLAC 30 MG/1 ML INJ IV SCH ×2 (02:33→06:50)
[2021-06-18] MEDS: ceFAZolin/NS 1 GM/50 ML 1 GM/50 ML BAG IV SCH ×2 (02:41→09:56)
[2021-06-18 05:31] LABS: Hematocrit 25.2 % (30.3-42.9); Hemoglobin 8.4 gm/dl (10.1-14.3)
--- NOTE | 2021-06-18 08:02 | Progress Note ---
Assessment and Plan Pt standing at bedside with RN and FOC. swaddled and resting in bassinet at bedside. Pt reports ambulating, eating, and voiding well and without difficulties. Pt denies complaints at this time. VSS; H&H postop with asymptomatic anemia d/t acute blood loss. Precautions and POC d/w pt. Pt verbalizes understanding. Pt reports she's unsure on her desires for a circumcision outpatient. Anticipate stable dc home tmrw with infant. - Patient Problems (1) delivery delivered Current Visit: Yes Status: Acute Plan to address problem: continue postoperative pathway Subjective - Subjective Date of service: 06/18/21 Principal diagnosis: POD #1 Patient reports: appetite normal, voiding normally, pain well controlled, ambulating normally, no dizzy ambulation, no appetite poor, no pain poorly controlled, no nauseated : doing well Objective - Vital Signs Latest vital signs: Vital Signs Temp Pulse Resp BP BP Pulse Ox Pulse Ox 06/18/21 06:50 18 06/18/21 04:25 98.2 F 74 18 114/62 99 06/18/21 02:39 18 06/18/21 02:33 18 06/18/21 00:59 98.2 F 71 20 134/77 100 06/17/21 22:00 98 06/17/21 21:18 98.1 F 56 L 18 137/72 97 06/17/21 20:15 98.4 F 60 17 124/41 98 06/17/21 20:00 63 18 106/67 98 06/17/21 19:45 67 16 126/63 98 06/17/21 19:30 71 13 116/53 98 06/17/21 19:25 67 20 110/53 99 06/17/21 19:20 73 18 104/47 98 06/17/21 19:15 98.2 F 75 21 121/47 06/17/21 17:15 96 H 97 06/17/21 17:11 101 H 111/71 06/17/21 17:10 98 H 97 06/17/21 17:05 105 H 98 06/17/21 17:00 74 99 06/17/21 16:55 79 100 06/17/21 16:50 79 100 06/17/21 16:45 74 100 06/17/21 16:40 83 122/61 100 06/17/21 16:35 80 100 06/17/21 16:30 82 100 06/17/21 16:25 79 100 06/17/21 16:20 79 100 06/17/21 16:15 80 100 06/17/21 16:10 79 123/64 100 06/17/21 16:05 76 100 06/17/21 16:00 81 100 06/17/21 15:55 76 99 06/17/21 15:50 79 100 06/17/21 15:45 81 100 06/17/21 15:40 77 119/67 100 06/17/21 15:35 75 100 06/17/21 15:30 76 100 06/17/21 15:25 69 100 06/17/21 15:20 69 100 06/17/21 15:15 72 100 06/17/21 15:10 68 112/54 100 06/17/21 15:05 70 100 06/17/21 15:00 69 100 06/17/21 14:55 69 100 06/17/21 14:50 71 100 06/17/21 14:45 74 100 06/17/21 14:40 72 108/56 100 06/17/21 14:35 70 100 06/17/21 14:30 74 100 06/17/21 14:25 80 100 06/17/21 14:20 70 100 06/17/21 14:15 80 100 06/17/21 14:10 85 99 06/17/21 14:09 81 122/69 06/17/21 14:05 79 99 06/17/21 14:00 79 98 06/17/21 13:55 89 99 06/17/21 13:50 105 H 98 06/17/21 13:45 81 99 06/17/21 13:40 79 121/67 98 06/17/21 13:35 86 99 06/17/21 13:30 87 99 06/17/21 13:25 76 99 06/17/21 13:20 90 99 06/17/21 13:15 83 99 06/17/21 13:10 111 H 99 06/17/21 13:09 96 H 125/68 06/17/21 13:05 78 99 06/17/21 13:00 74 97 06/17/21 12:55 71 97 06/17/21 12:52 80 117/64 06/17/21 12:50 69 98 06/17/21 12:47 79 94 06/17/21 12:45 75 97 06/17/21 12:41 67 91 06/17/21 12:40 67 97 06/17/21 12:37 83 129/70 06/17/21 12:35 81 99 06/17/21 12:32 66 93 06/17/21 12:30 84 95 06/17/21 12:26 64 93 06/17/21 12:25 65 95 06/17/21 12:22 67 138/74 06/17/21 12:21 73 92 06/17/21 12:20 65 96 06/17/21 12:15 72 96 06/17/21 12:10 74 95 06/17/21 12:07 65 94 06/17/21 12:05 61 136/83 98 06/17/21 12:03 70 130/81 06/17/21 12:01 74 128/80 06/17/21 12:00 69 98 06/17/21 11:53 71 130/77 06/17/21 11:51 68 126/72 06/17/21 11:50 65 98 06/17/21 11:49 72 127/66 06/17/21 11:48 79 94 06/17/21 11:47 63 117/64 06/17/21 11:45 66 114/61 96 06/17/21 11:43 65 127/74 06/17/21 11:42 76 94 06/17/21 11:41 55 L 119/65 06/17/21 11:40 69 118/67 98 06/17/21 11:37 76 98/50 06/17/21 11:35 71 97/54 98 06/17/21 11:33 72 104/56 06/17/21 11:31 77 99/55 06/17/21 11:30 81 98 06/17/21 11:29 80 111/56 06/17/21 11:27 71 116/56 06/17/21 11:25 74 110/53 98 06/17/21 11:23 76 105/55 06/17/21 11:21 83 101/55 06/17/21 11:20 87 100 06/17/21 11:19 82 102/53 06/17/21 11:17 95 H 110/56 06/17/21 11:15 79 116/56 99 06/17/21 11:13 82 125/65 06/17/21 11:11 84 139/76 06/17/21 11:10 85 100 06/17/21 11:09 88 139/81 06/17/21 11:07 78 124/65 06/17/21 11:05 83 100 06/17/21 11:00 91 H 100 06/17/21 10:55 83 100 06/17/21 10:50 79 100 06/17/21 10:45 87 100 06/17/21 10:40 84 99 06/17/21 10:35 93 H 100 06/17/21 10:30 90 99 06/17/21 10:25 73 99 06/17/21 10:20 61 86 06/17/21 10:15 83 99 06/17/21 10:10 83 99 06/17/21 09:53 77 99 06/17/21 09:48 76 98 06/17/21 09:43 79 98 06/17/21 09:38 61 100 06/17/21 09:33 71 96 06/17/21 09:30 62 94 06/17/21 09:28 65 97 06/17/21 09:23 76 100 06/17/21 09:18 71 96 06/17/21 09:13 95 H 100 06/17/21 09:08 89 100 06/17/21 09:07 92 H 93 06/17/21 09:03 75 99 06/17/21 08:58 76 96 06/17/21 08:57 66 92 06/17/21 08:53 82 97 06/17/21 08:51 86 93 06/17/21 08:48 85 99 06/17/21 08:43 93 H 100 06/17/21 08:42 81 94 06/17/21 08:38 81 100 06/17/21 08:33 83 99 06/17/21 08:28 80 96 06/17/21 08:23 93 H 99 06/17/21 08:08 86 99 06/17/21 08:05 81 94 06/17/21 08:03 87 132/69 97 Intake and Output 06/17/21 06/18/21 06/18/21 23:59 07:59 15:59 Intake Total 852.167 100 Output Total 300 100 Balance 552.167 0 Intake: IV 852.167 PITOCin/NS 30 UNIT/500ML 52.167 30 units In 500 ml @ 4 mls/hr IV TITR MILLY Rx#: [id number] Oral 100 Output: Urine 300 100 Indwelling Catheter 100 Uretheral (Qureshi) 50 Other: Total, Intake Amount 100 Total, Output Amount 100 Estimated Blood Loss 441 - Exam Breasts: Present: normal Cardiovascular: Present: Regular rate Lungs: Present: Normal air movement Abdomen: Present: normal appearance, soft. Absent: distention, rigidity Vulva: both: normal Uterus: Present: normal, firm, fundal height at umbilicus. Absent: bogginess Extremities: Present: edema (non pitting) Incision: Present: normal, dry, intact. Absent: dressed Comments: scant lochia noted on peripad - Labs Labs: Abnormal lab results 06/18/21 Range/Units 05:07 Hgb 8.4 L (10.1-14.3) gm/dl Hct 25.2 L (30.3-42.9) %
[2021-06-18] MEDS: PRENATAL VIT27-FE FUMARATE-FOLIC ACID VIT TAB PO SCH (09:56)
[2021-06-18] MEDS ORDERED: FERROUS SULFATE 325 MG TAB PO SCH (10:00)
[2021-06-18] MEDS ORDERED: IBUPROFEN 600 MG TAB PO PRN (12:00)
[2021-06-18] MEDS: FERROUS SULFATE 325 MG TAB PO SCH ×2 (12:10→14:00)
[2021-06-18] MEDS: IBUPROFEN 800 MG TAB PO PRN (15:07)
[2021-06-18] MEDS: HYDROcodone/ACETAMINOPHEN 5-325 MG TAB PO PRN (17:39)
--- NOTE | 2021-06-18 22:30 | Post Anesthesia Evaluation ---
- Post Anesthesia Evaluation Patient Participated: Yes Airway Patent: Yes Stable Respiratory Function: Yes Nausea/Vomiting: No Temp > 96.8F: Yes Pain Manageable: Yes Adequeate Hydration: Yes Anesthesia Complications: No Block Receding Appropriately: Yes Patient on Ventilator: No
[2021-06-19] MEDS: FERROUS SULFATE 325 MG TAB PO SCH ×3 (00:20→16:00)
[2021-06-19] MEDS: HYDROcodone/ACETAMINOPHEN 5-325 MG TAB PO PRN ×3 (00:21→16:00)
[2021-06-19] MEDS ORDERED: TETANUS,DIPH,PERTUSS(ACELL) VACCINE 0.5 ML SYRINGE IM ONE (06:00)
[2021-06-19] MEDS: PRENATAL VIT27-FE FUMARATE-FOLIC ACID VIT TAB PO SCH (10:44)
--- NOTE | 2021-06-19 12:01 | Discharge Summary ---
Providers - Providers Date of Admission: 06/15/21 20:32 Attending physician: VIPUL KEITA 06/17/21 22:51 Consult to Php Mysql Developer [CONS] Routine Reason For Exam: Primary care physician: VIPUL KEITA Hospitalization Reason for admission: IOL Condition: Good Pertinent studies: H&H 8.4/25.2, Asymptomatic anemia d/t acute bloodloss Procedures: Primary C/S Hospital course: Uncomplicated and postop course Disposition: 01 HOME / SELF CARE / HOMELESS Final Discharge Diagnosis (Prints w/discharge instructions): Time spent for discharge: 15 - Discharge Diagnoses (1) BMI 45.0-49.9, adult Status: Acute (2) delivery delivered Status: Acute Core Measure Documentation - Palliative Care Palliative Care/ Comfort Measures: Not Applicable - Core Measures Any of the following diagnoses?: none Exam - Constitutional Vitals: Temp Pulse Resp BP Pulse Ox 98.0 F 77 18 125/72 96 06/19/21 08:11 06/19/21 08:11 06/19/21 08:11 06/19/21 08:11 06/19/21 08:11 General appearance: Present: no acute distress, well-nourished - EENT Eyes: Present: PERRL ENT: hearing intact, clear oral mucosa - Neck Neck: Present: supple, normal ROM - Respiratory Respiratory effort: normal Respiratory: bilateral: CTA - Cardiovascular Heart Sounds: Present: S1 & S2. Absent: rub, click - Extremities Extremities: pulses symmetrical, No edema Peripheral Pulses: within normal limits - Abdominal General gastrointestinal: Present: soft, non-tender, non-distended, normal bowel sounds Female genitourinary: Present: normal - Integumentary Integumentary: Present: clear, warm, dry - Musculoskeletal Musculoskeletal: gait normal, strength equal bilaterally - Psychiatric Psychiatric: appropriate mood/affect, intact judgment & insight - Neurologic Neurologic: CNII-XII intact, moves all extremities - Additional findings Additional findings: Surgical incision approximated and healing, lochia scant, fundus firm, bottle feeding Plan Activity: advance as tolerated Diet: regular Wound: open to air, keep clean and dry Follow up with: VIPUL KEITA MD [Primary Care Provider] - 7 Days (Congratulations! Please call [phone] to schedule your incision check and son's circumcision in 1 week. Bring EMLA cream to your son's visit and wait for further teaching. Please call with any questions or concerns.) Prescriptions: Lidocain2.5%/Prilocai2.5% [Emla] 5 gm TP ONCE #1 tube Ferrous Sulfate [Feosol 325 MG tab] 325 mg PO BID #60 tablet Ibuprofen [Motrin] 800 mg PO TID PRN #30 tablet PRN Reason: Pain oxyCODONE /ACETAMINOPHEN [Percocet 5/325 mg] 1 - 2 tab PO Q6HR PRN #20 tablet PRN Reason: Pain
[2021-06-19] MEDS: IBUPROFEN 800 MG TAB PO PRN (12:11)
[2021-06-19 16:23] VITALS: BP 132/85
== END 2021-06-19 16:00 | disposition home or self-care (01) | DRG 765 ==
LOC: TRG 20:14 → LD 20:16 → TRG 20:31 → LD 20:32 → OB 06-17 22:44
PROVIDERS: ADMIT Obstetrics & Gynecology; ATTEND Obstetrics & Gynecology
PROC: 10D00Z1 Extraction of Products of Conception, Low, Open Approach (ICD-10-PCS; principal; 2021-06-17)
PROC: 3E0P7VZ Introduction of Hormone into Female Reproductive, Via Natural or Artificial Opening (ICD-10-PCS; 2021-06-17)
PROC: 3E0R3BZ Introduction of Anesthetic Agent into Spinal Canal, Percutaneous Approach (ICD-10-PCS; 2021-06-17)
PROC: 00HU33Z Insertion of Infusion Device into Spinal Canal, Percutaneous Approach (ICD-10-PCS; 2021-06-17)
PROC: 10907ZC Drainage of Amniotic Fluid, Therapeutic from Products of Conception, Via Natural or Artificial Opening (ICD-10-PCS; 2021-06-17)
PROC: 10H07YZ Insertion of Other Device into Products of Conception, Via Natural or Artificial Opening (ICD-10-PCS; 2021-06-17)
PROC: 3E0T3BZ Introduction of Anesthetic Agent into Peripheral Nerves and Plexi, Percutaneous Approach (ICD-10-PCS; 2021-06-17)
PROC: 3E0234Z Introduction of Serum, Toxoid and Vaccine into Muscle, Percutaneous Approach (ICD-10-PCS; 2021-06-19)
DX: O99.824 Streptococcus B carrier state complicating childbirth (principal); D62 Acute posthemorrhagic anemia; Z37.0 Single live birth; Z3A.40 40 weeks gestation of pregnancy; Z20.822 Contact with and (suspected) exposure to COVID-19; O99.214 Obesity complicating childbirth; E66.01 Morbid (severe) obesity due to excess calories; O48.0 Post-term pregnancy; O76 Abnormality in fetal heart rate and rhythm complicating labor and delivery; O61.9 Failed induction of labor, unspecified; O90.81 Anemia of the puerperium; O62.1 Secondary uterine inertia; Z23 Encounter for immunization
CPT/HCPCS: 36415; 59200; 85014; 85018; 85027; 86592; 86850; 86900; 86901; 90471; 90715; G0378; J0290; J0690; J1100; J1170; J1885; J2300; J2405; J2590; J2765; J3010; J3490; J7120; J7121; U0003